=== PATIENT | female | born 1945 | race Caucasian/White ===

== ENCOUNTER 2021-10-02 15:50 | Emergency (ER) | payer OTHER, MEDICARE, SELFPAY ==
--- NOTE | ~2021-10-02 | CT_ITS ---
EXAMINATION: NONCONTRAST HEAD CT NONCONTRAST CERVICAL SPINE CT INDICATION INFORMATION: Right-sided headache COMPARISON: 03/18/2017 TECHNIQUE: Separate noncontrast CT examinations of the head and cervical spine were performed. Coronal and sagittal images were created for each examination at the technologist workstation. This CT examination was performed using dose optimization techniques as appropriate, variously including the following: *Automated exposure control *Adjustment of mA and/or kV according to patient size (this includes techniques or standardized protocols for targeted exams where dose is matched to indication/reason for exam; i.e. extremities or head) *Use of iterative reconstruction technique DLP: 971 mGy-cm FINDINGS: Head: There is no evidence of acute intracranial hemorrhage or territorial infarction. No abnormal mass effect or midline shift is seen. Valerio to white matter differentiation is well preserved. No extra-axial fluid collections are identified. No hydrocephalus. Proportional prominence of the ventricles and sulcal spaces is consistent with mild volume loss. Patchy periventricular and deep white matter hypoattenuation is consistent with mild small vessel ischemic changes. No acute osseous or soft tissue abnormality. The mastoid air cells and visualized portions of the paranasal sinuses are well aerated. Cervical spine: There is anatomic alignment of the vertebral bodies and posterior elements. The atlantoaxial and atlantooccipital articulations are intact. Vertebral body heights are maintained. There is multilevel intervertebral disc space narrowing with endplate osteophyte formation and facet arthropathy. No evidence of acute fracture. No prevertebral soft tissue swelling. Visualized portions of the lung apices are unremarkable. The thyroid gland is unremarkable. CT/CT cervical spine wo con IMPRESSION: 1. No acute intracranial finding. 2. No acute fracture or malalignment of the cervical spine. Mild degenerative change throughout.
[2021-10-02 17:05] VITALS: BP 125/55; PULSE 78; RESP 18; TEMP 37.2; O2SAT 97; BMI 33.3
--- NOTE | 2021-10-02 18:28 | ED_ITS ---
HPI - General Adult General Chief complaint: Head Injury Stated complaint: Head Pain S/P Injury 10/01/21 Time Seen by Provider: 10/02/21 17:18 Source: patient Mode of arrival: ambulatory Limitations: no limitations History of Present Illness HPI narrative: 76 yold female presents to the ED for right sided headache since yesterday after hitting right side of head on door frame of car while getting out of her car. patient denies falling to the ground or any blunt trauma/car to her body. patient denies any vomitting, nausea, or dizziness. Patient presented to the ED for worsening right of headache. Patient denies any visual disturbances. patient denies any chest pain or shortness of breath. patient denies any slurred speech, loss of vision, paralysis of extremities, facial droop, or any other concerning symptoms. Related Data Previous Rx's Medication Instructions Recorded naproxen 500 mg tablet 500 mg PO BID PRN pain 10 days #20 10/02/21 tabs Allergies Allergy/AdvReac Type Severity Reaction Status Date / Time meperidine [From Demerol] AdvReac Mild NAUSEA & Verified 10/02/21 17:04 VOMITING Review of Systems Review of Systems: headache. Right head injury. Yes all other systems are reviewed and are negative [facility] Social History Social History Advance Directives: No Advance Directives Information Provided: No Physical Exam ED Vital Signs: Vital Signs - 24 hr 10/02/21 17:05 Temperature 98.9 F Pulse Rate 78 Respiratory Rate 18 Blood Pressure 125/55 L Pulse Oximetry 97 Oxygen Delivery Method Room Air BMI result Body Mass Index 33.3 Const General: cooperative, healthy appearing, comfortable, no acute distress, well developed, alert, awake and Physically active Orientation/consciousness: patient oriented x3 HENMT Head: Yes normal to inspection, Yes No palpable skull fracture present, Yes normocephalic, Yes atraumatic and No abrasion Head images: 1. Tenderness on palpation. negative for ecchymosis, crepitus, abrasions, or deformities. Eyes General: appearance normal, both eyes and all related structures Neck Neck: Yes normal visual inspection, Yes full ROM, Yes no lymphadenopathy, Yes no meningeal signs, Yes trachea midline, Yes supple, No anterior neck swelling and No tender Chest Chest palpation & inspection: normal inspection of the chest and normal palpation of entire chest wall Resp Effort & Inspection: normal respiratory effort and able to speak in complete sentences Cardio Jugular venous distension: no JVD Heart sounds: S1 normal heart sound present and S2 normal heart sound present GI Inspection: Yes normal to inspection and No abdominal wall ecchymosis Palpation (GI): Soft to palpation, not firm, nontender, no guarding and not ri gid General: No CVA tenderness and Yes no CVA tenderness Back/Spine/Pelvis Back: no CVA tenderness, No CVA tenderness and No back tenderness Skin General skin exam: no rashes or lesions noted and elasticity normal Neuro Other: Negative For neuro deficits General: patient oriented x3, gait normal, no meningeal signs and CN's II-XI intact bilaterally Cranial nerves: Yes CN's II-XII intact bilaterally Extrem General: Yes normal to inspection and Yes full ROM Psych Appearance: grossly normal, well kempt and not disheveled NIH Stroke Scale Internal: Initial- Upon Arrival Level of Consciousness: Alert Level of Consciousness Questions: Answers both questions correctly Level of Consciousness Commands: Performs both tasks correctly Best Gaze: Normal Visual: No visual loss Facial Palsy: Normal Motor Arm (Right): No drift Motor Arm (Left): No drift Motor Leg (Right): No drift Motor Leg (Left): No drift Limb Ataxia: Absent Sensory: Normal Best Language: No aphasia Dysarthia: Normal Extinction and Inattention: No abnormality Score: 0 Course Course Course Narrative: patient is not on any blood thinners, but will send for imaginging due to trauma and headche. Reevaluation(s) Reevaluation #1: Imaging came back normal. patient safe for discharge. NOt suspecting temporal arteritis, meningitis, brain bleed, encephatitis, or any other concerning symptoms. Patient discharge with pain meds Time: 20:16 Discharge Plan Discharge Clinical Impression: Closed head injury Patient Disposition: Home, Self-Care Instructions: Head Injury (ED) Additional Instructions: Return to the ED for any nausea, vomitting, worsening headache, slurred speech, dizziness, paralysis of extremities, fever, chills, loss of visions, change in vision, chest pain, shortness of breath, or any other concerning symptoms. Please follow up with PCP. Prescriptions: New naproxen 500 mg tablet 500 mg PO BID PRN (Reason: pain) 10 Days Qty: 20 0RF Interventions: ED Discharge Assessment Last Done: 10/02/21 20:26 Discharge Date/Time: 10/02/21 20:28 Print Language: Maldivian
[2021-10-02] MEDS: Acetaminophen 325 MG TABLET 975 MG PO (18:47)
--- NOTE | 2021-10-02 18:47 | PC.NURSE ---
returned to unit from CT. Resting on stretcher, medicated with tylenol. Ambulated well to with steady gait
== END 2021-10-02 20:28 | disposition home or self-care (01) ==
PROVIDERS: Emergency Provider Student in an Organized Health Care Education/Training Program
DX: S00.93XA Contusion of unspecified part of head, initial encounter (principal); R51.9 Headache, unspecified; M54.2 Cervicalgia; Y29.XXXA Contact with blunt object, undetermined intent, initial encounter; Y93.9 Activity, unspecified; Y92.9 Unspecified place or not applicable; Y99.9 Unspecified external cause status
CPT/HCPCS: 70450; 72125; 99283; 99284

== ENCOUNTER 2022-05-09 23:14 | Emergency (ER) | payer OTHER, MEDICARE, SELFPAY ==
[2022-05-09 23:28] VITALS: BP 145/75; PULSE 75; RESP 18; TEMP 37; O2SAT 96; BMI 36.1
[2022-05-09 23:36] VITALS: BP 139/48; PULSE 79; RESP 17; TEMP 37.1
--- NOTE | 2022-05-09 23:48 | ED_ITS ---
HPI - Headache General Chief Complaint: Dental/Oral Stated Complaint: jaw/ear pain Time Seen by Provider: 05/09/22 23:43 Source: patient Mode of arrival: ambulatory Limitations: no limitations History of Present Illness HPI Narrative: 76-year-old female several weeks of right-sided jaw pain pain on chewing. She denies any falls or injuries states to have problem is any excessive chewing that she does eat a lot of apples. She states she has limited ability to open her jaw. Patient has gone to walk and a concert on antibiotics. She has not followed with anybody for this pain. MD elicited complaint: other Related Data Previous Rx's Medication Instructions Recorded naproxen 500 mg tablet 500 mg PO BID PRN pain 10 days #20 10/02/21 tabs acetaminophen 325 mg tablet 325 mg PO QID PRN pain #90 tabs 05/09/22 (Tylenol) prednisone 20 mg tablet 60 mg PO DAILY Asthma 5 days #15 05/09/22 tabs Allergies Allergy/AdvReac Type Severity Reaction Status Date / Time meperidine [From Demerol] AdvReac Mild NAUSEA & Verified 05/09/22 23:27 VOMITING Review of Systems Review of Systems: Review of systems: General: Patient denies any fever chills recent illness or falls Musculoskeletal: Denies back pain or body aches or other injuries HEENT: Right-sided jaw pain denies headache, runny nose, ear pain Respiratory: denies shortness of breath, cough Cardiovascular: no chest pain or palpitations : denies dysuria, frequency Abdomen: no nausea vomiting denies abdominal pain Extremities: no swelling, no pain Skin: no diaphoresis Yes all other systems are reviewed and are negative Physical Exam Vital Signs: Vital Signs: Last Vital Signs Temp 98.8 F 05/09/22 23:36 Pulse 79 05/09/22 23:36 Resp 17 05/09/22 23:36 BP 139/48 L 05/09/22 23:36 Pulse Ox 96 05/09/22 23:28 O2 Del Method 05/09/22 23:36 BMI result Body Mass Index 36.1 General: Well-appearing well-nourished in no signs of distress HEENT: Normocephalic atraumatic pain and TMJ area pain with movement of the jaw no pain to palpation of the teeth no signs infection patient does have poor dentition Neck: No signs of JVD, no masses no tenderness or lymphadenopathy Cardiovascular: Regular rate and rhythm Respiratory: Clear to auscultation bilaterally Abdomen: Soft nontender no masses Extremities: Normal pedal pulses no signs of edema Skin: Dry warm no rashes Back: No tenderness full ROM Medical Decision Making Differential Diagnosis Differential Diagnoses: The differential diagnosis associated with the presentation includes Concern for dental infection verses ACS or localized pain he feels this is only localized jaw pain as it is reproducible with patient and with any movement of the jaw she denies any dental pain pain with chewing. Admission/Observation Consideration of admission/observation: Escalation of care including admission/observation considered Discharge Plan Discharge Clinical Impression: TMJ (temporomandibular joint syndrome) Patient Disposition: Home, Self-Care Instructions: Temporomandibular Disorder (ED) Additional Instructions: Your seen today in the emergency department for your jaw. Appears that you have TMJ syndrome this could be related to chewing now IV follow up with her dentist. I did start her short course of prednisone please call follow-up care doctor as needed. Prescriptions: New acetaminophen [Tylenol] 325 mg tablet 325 mg PO QID PRN (Reason: pain) Qty: 90 0RF prednisone 20 mg tablet 60 mg PO DAILY 5 Days Qty: 15 0RF No Action naproxen 500 mg tablet 500 mg PO BID PRN (Reason: pain) 10 Days Qty: 20 0RF Referrals: [facility] [Provider Group] ([phone] Please call to follow up with a dentist.)
[2022-05-09] MEDS: predniSONE 20 MG TABLET 60 MG PO (23:58)
[2022-05-09] MEDS: Acetaminophen 325 MG TABLET 650 MG PO (23:58)
[2022-05-09] MEDS: Ketorolac Tromethamine 30 MG/ML VIAL 15 MG IM (23:59)
== END 2022-05-10 00:11 | disposition home or self-care (01) ==
PROVIDERS: Emergency Provider Student in an Organized Health Care Education/Training Program
DX: M26.601 Right temporomandibular joint disorder, unspecified (principal)
CPT/HCPCS: 96372; 99283; 99284; J1885

== ENCOUNTER 2022-06-09 13:24 | Observation (INO) | payer OTHER, MEDICARE, SELFPAY ==
[2022-06-09] VITALS (8 sets, daily range): BP systolic 104–158; BP diastolic 61–78; PULSE 75–114; RESP 18–22; TEMP 36.6–37; O2SAT 88–98; BMI 33.6; BMI 35.6
--- NOTE | ~2022-06-09 | XR_ITS ---
EXAMINATION: XR CHEST CLINICAL INFORMATION: Cough for 2 weeks COMPARISON: Chest x-ray on 01/27/2018 TECHNIQUE: 2 views of the chest were obtained. FINDINGS: The cardiac silhouette is normal. There is mild diffuse bronchial wall thickening. There are no areas of consolidation. There are no pleural effusions or pneumothoraces. The bones and soft tissues are unremarkable for the patient's age. XR/XR chest 2V IMPRESSION: Bronchial wall thickening may be infectious and/or inflammatory in etiology.
--- NOTE | ~2022-06-09 | CT_ITS ---
EXAMINATION: CT CHEST WITHOUT CONTRAST CLINICAL INFORMATION: Shortness of breath. COMPARISON: Chest x-ray dated 06/09/2022. CT pulmonary angiogram dated 06/16/2006. TECHNIQUE: Multidetector volumetric CT imaging of the chest was obtained noncontrast. Sagittal and coronal reformations were obtained. This CT examination was performed using dose optimization techniques as appropriate, variously including the following: *Automated exposure control *Adjustment of mA and/or kV according to patient size (this includes techniques or standardized protocols for targeted exams where dose is matched to indication/reason for exam; i.e. extremities or head) *Use of iterative reconstruction technique DLP: 299 mGy-cm. FINDINGS: LUNGS: There is mild volume loss with patchy areas of atelectasis seen inferiorly within the right and left upper lobes adjacent to the major fissure, medially in the right middle lobe, and in the lower lobes bilaterally, most prominent in the inferomedial aspects. The findings in the right middle lobe and lingula are associated with minimal traction bronchiolectasis and are similar to older exam from 06/16/2006, suggesting chronic atelectasis. No focal pneumonia is seen. No effusion is noted. The central airways are patent. No focal lung nodule or mass. No evidence of interstitial lung disease or fibrosis. LYMPHOVASCULAR STRUCTURES: Aortic and heart size normal. Mild atherosclerotic calcifications of the aorta No pericardial effusion. No mediastinal, hilar or axillary adenopathy or free fluid collection. CORONARY ARTERY CALCIFICATION: Moderate left anterior descending coronary artery calcifications. THYROID GLAND: Unremarkable to the extent included. UPPER ABDOMEN: There is a 3 cm cyst in the left lobe of the liver, segment 2 (series 4, image 46), larger compared to 0.8 cm previously. Additional smaller low-attenuation masses are seen in segment 3 and segment 5 (series 4, images 53 and 55), not appreciated/included on prior exam and too small to be characterized but likely also small cysts. Included portions of the solid organs in the upper abdomen within normal limits. BONES: Screws are seen in the left humeral head. There is diffuse osteopenia. Moderate vertebral spurring is seen in the mid and lower thoracic spine. CT/CT chest wo IV con IMPRESSION: 1. Multifocal areas of atelectasis seen in the lungs. No focal pneumonia. 2. No adenopathy. 3. Moderate left anterior descending coronary artery calcifications. 4. Osteopenia.
--- NOTE | 2022-06-09 13:49 | ED_ITS ---
HPI - General Adult General Chief complaint: Upper Respiratory Symptoms <DARRION Pandya - Last Filed: 06/09/22 13:50> Stated complaint: coughing <DARRION Pandya - Last Filed: 06/09/22 13:50> Time Seen by Provider: 06/09/22 14:46 <DARRION Pandya - Last Filed: 06/09/22 13:50> Source: patient <Ev Velasquez MD - Last Filed: 06/09/22 16:08> Mode of arrival: ambulatory <Ev Velasquez MD - Last Filed: 06/09/22 16:08> Limitations: no limitations <Ev Velasquez MD - Last Filed: 06/09/22 16:08> History of Present Illness HPI narrative: 76-year-old female who is a secondhand smoker with history of COPD/asthma patient do not use supplemental oxygen at home presented with 3 weeks of upper respiratory symptoms with coughing and shortness of breath associated with chest pain with coughing. Patient finished a course of antibiotic, steroid as an o utpatient with no relief of her symptoms. Stated that her symptoms worsening, patient is satting 92% on air. <Ev Velasquez MD - Last Filed: 06/09/22 16:08> Related Data Home medications: Previous Rx's Medication Instructions Recorded naproxen 500 mg tablet 500 mg PO BID PRN pain 10 days #20 10/02/21 tabs acetaminophen 325 mg tablet 325 mg PO QID PRN pain #90 tabs 05/09/22 (Tylenol) prednisone 20 mg tablet 60 mg PO DAILY Asthma 5 days #15 05/09/22 tabs <DARRION Pandya - Last Filed: 06/09/22 13:50> Allergies/adverse reactions: Allergies Allergy/AdvReac Type Severity Reaction Status Date / Time meperidine [From Demerol] AdvReac Mild NAUSEA & Verified 06/09/22 13:48 VOMITING <DARRION Pandya - Last Filed: 06/09/22 13:50> Review of Systems Review of Systems: All other systems are reviewed and are negative Constitutional: Reports as per HPI and Reports no additional constitutional complaints Eyes: Reports as per HPI and Reports no additional eye complaints Reports system reviewed and no additional complaints, except as documented Cardiovascular: Reports as per HPI and Reports no additional cardiovascular c omplaints Respiratory: Reports as per HPI and Reports no additional respiratory complaints Gastrointestinal: Reports as per HPI and Reports no additional gastrointestinal complaints Genitourinary: Reports no additional female genitourinary complaints Musculoskeletal: Reports no additional musculoskeletal complaints Skin/Breast: Reports system reviewed and no additional complaints, except as docu Psychiatric: Reports no additional psychiatric complaints Endocrine: Reports no additional endocrine complaints Hematologic/Lymphatic: Reports no additional hematologic/lymphatic complaints Allergic/Immunologic: Reports no additional allergic/immunologic complaints Reports system reviewed and no additional complaints, except as documented and Reports Abnormal speech present <Ev Velasquez MD - Last Filed: 06/09/22 16:08> [facility] Past Medical History Medical History: Medical History Asthma COPD (chronic obstructive pulmonary disease) <DARRION Pandya - Last Filed: 06/09/22 13:50> Social History Social History: Social History Alcohol intake: current Alcohol intake frequency: holidays/special occasions only Smoked in Last 30 Days: No Use of substances other than those prescribed or required for medical reasons: No Advance Directives: No Advance Directives Information Provided: Yes <DARRION Pandya - Last Filed: 06/09/22 13:50> Physical Exam ED Vital Signs: Vital Signs - 24 hr 06/09/22 13:48 06/09/22 14:32 06/09/22 14:36 Temperature 98.6 F 98.4 F Pulse Rate 114 H 94 Respiratory Rate 22 H 18 Blood Pressure 158/78 H 104/76 Pulse Oximetry 94 93 93 Oxygen Delivery Method Room Air Room Air Room Air BMI result Body Mass Index 33.6 <DARRION Pandya - Last Filed: 06/09/22 13:50> Vital Signs - 24 hr 06/09/22 13:48 06/09/22 14:32 06/09/22 14:36 Temperature 98.6 F 98.4 F Pulse Rate 114 H 94 Respiratory Rate 22 H 18 Blood Pressure 158/78 H 104/76 Pulse Oximetry 94 93 93 Oxygen Delivery Method Room Air Room Air Room Air BMI result Body Mass Index 33.6 Vital signs have been reviewed as appeared to be correct. Blood pressure normal. Heart rate normal. Respiration rate normal. Temperature normal. Oxygen saturation normal. <Ev Velasquez MD - Last Filed: 06/09/22 16:08> Appearance: Alert. Oriented X3. No acute distress. Head: Normal external exam. Normocephalic. Atraumatic. No Cooper signs noted. No raccoon eyes noted Eyes: PERRLA. EOMI. Conjunctiva and sclera normal. Eyelids normal. ENT: TM's Normal. Pharynx normal. Uvula midline. Moist mucous membranes. No trismus noted. No drooling noted. No muffled voice noted. Neck: Normal inspection. Neck supple. FROM. No adenopathy. Thyroid Normal. No meningeal signs. No neck mass noted. CVS: Normal heart rate and rhythm. Heart sound normal. No murmurs noted. Pulses normal throughout. Respiratory: No respiratory distress. Painless inspiration. Breath sounds normal. Expiratory wheezing, with prolonged expiration. Chest tender to palpation.. No accessory muscle usage noted or decreased air movement noted. Abdomen: Soft and nontender. Bowel sounds normal in all 4 quadrants. No distention noted. No organomegaly noted. No visible injury noted. Back: No CVA tenderness. Full range of motion noted. Skin: Skin warm and dry. Normal skin color. Normal skin turgor. No rashes/lesions/lacerations noted. Extremities: No lower extremity edema. Extremities exhibit normal range of motion. Extremities nontender. Neuro: Oriented X 3. Cranial nerve exam: II-XII are grossly intact No motor deficit. No sensory deficit. Reflexes normal. <Ev Velasquez MD - Last Filed: 06/09/22 16:08> Course Course Course Narrative: RME performed by Autumn Pate PA-C. Patient is a 76 year old assigned female at presenting to the emergency department with a cough. Patient states that she was seen at an urgent care and given prednisone but the cough persists. Patient states that she saw her PCP who informed her it was viral and would resolve but it has been getting worse. Labs, imaging, and swab ordered. Patient placed back in the waiting room pending room availability and results. <DARRION Pandya - Last Filed: 06/09/22 13:50> Reevaluation(s) Reevaluation #1: COPD exacerbation patient tried outpatient antibiotic and steroid course with no relief of her symptoms patient with O2 sat of 92% on room air, chest x- ray is revealing no gita pneumonia pending chest CT, will admit for bronchodilator therapy and antibiotic with IV steroids. <Ev Velasquez MD - Last Filed: 06/09/22 16:08> Time: 16:07 <Ev Velasquez MD - Last Filed: 06/09/22 16:08> Medical Decision Making Differential Diagnosis Differential Diagnoses: The differential diagnosis associated with the presentation includes (Pneumonia, bronchitis, COPD exacerbation, interstitial lung disease.) <Ev Velasquez MD - Last Filed: 06/09/22 16:08> Admission/Observation Consideration of admission/observation: Escalation of care including admission/observation considered <Ev Velsaquez MD - Last Filed: 06/09/22 16:08> Consult Healthcare Provider Management of the patient was discussed with: Hospitalist (Dr. Yoo) <Ev Velasquez MD - Last Filed: 06/09/22 16:08> Lab Data MDM Lab Attestation statement: I reviewed the patient's lab results. <Ev Velasquez MD - Last Filed: 06/09/22 16:08> Result Diagrams: 06/09/22 14:07 06/09/22 14:07 <DARRION Pandya - Last Filed: 06/09/22 13:50> Labs: Lab Results 06/09/22 06/09/22 06/09/22 Range/Units 14:07 14:07 14:07 WBC 9.0 (4.8-10.8) X10*3/uL RBC 4.63 (4.20-5.50) X10*6/uL Hgb 12.9 (12.0-16.0) g/dl Hct 39.9 (37.0-47.0) % MCV 86.2 (80.0-98.0) fL MCH 27.9 (27.0-33.0) pg MCHC 32.3 (31.0-35.0) g/dl RDW 14.1 (11.0-16.0) % Plt Count 293 (160-400) X10*3/uL MPV 8.4 L (9.4-12.3) fL Immature Gran % (Auto) 0.4 (0.0-0.4) % Neut % (Auto) 90.4 H (45-73) % Lymph % (Auto) 8.0 L (20-40) % [place] % (Auto) 1.0 L (2-11) % Eos % (Auto) 0.1 (0-4) % Baso % (Auto) 0.1 (0-2) % Lymph # (Auto) 0.7 L (1.2-4.9) X10*3/uL [place] # (Auto) 0.1 (0.1-1.2) X10*3/uL Eos # (Auto) 0.0 (0.0-0.4) X10*3/uL Baso # (Auto) 0.0 (0.0-0.2) X10*3/uL Abs Immat Gran (auto) 0.04 H (0.00-0.03) X10*3/uL Absolute Neuts (auto) 8.2 (2.0-8.3) x10*3/uL Absolute Nucleated RBC 0.000 (0.0-0.012) X10*3/uL Nucleated RBC % (auto) 0.0 (0.0-0.2) /100WBC Smear Tech's Comments VERIFIED Sodium 138 (135-145) mmol/L Potassium 4.3 (3.3-5.1) mmol/L Chloride 105 (96-108) mmol/L Carbon Dioxide 22 (22-29) mmol/L Anion Gap 15 (12-20) BUN 15 (9-16) mg/dL Creatinine 0.76 (0.5-1.4) mg/dL Estim Creat Clear Calc 66.5 Estimated GFR > 60 Random Glucose 169 H (60-115) mg/dL Calcium 9.0 (8.4-10.2) mg/dL Magnesium 2.1 (1.6-2.6) mg/dL Total Bilirubin 0.3 (0.0-1.0) mg/dL AST 12 (5-31) U/L ALT 14 (0-31) U/L Alkaline Phosphatase 89 (39-117) U/L Troponin I High Sens < 2.7 (<3.5-17.0) ng/L Total Protein 6.8 (6.5-8.0) g/dL Albumin 4.1 (3.5-5.0) g/dL Influenza Type A (PCR) (Negative) Influenza Type B (PCR) (Negative) RSV RNA Qual (PCR) (Negative) SARS-CoV-2 RNA (RT-PCR) (Negative) 06/09/22 Range/Units 14:07 WBC (4.8-10.8) X10*3/uL RBC (4.20-5.50) X10*6/uL Hgb (12.0-16.0) g/dl Hct (37.0-47.0) % MCV (80.0-98.0) fL MCH (27.0-33.0) pg MCHC (31.0-35.0) g/dl RDW (11.0-16.0) % Plt Count (160-400) X10*3/uL MPV (9.4-12.3) fL Immature Gran % (Auto) (0.0-0.4) % Neut % (Auto) (45-73) % Lymph % (Auto) (20-40) % [place] % (Auto) (2-11) % Eos % (Auto) (0-4) % Baso % (Auto) (0-2) % Lymph # (Auto) (1.2-4.9) X10*3/uL [place] # (Auto) (0.1-1.2) X10*3/uL Eos # (Auto) (0.0-0.4) X10*3/uL Baso # (Auto) (0.0-0.2) X10*3/uL Abs Immat Gran (auto) (0.00-0.03) X10*3/uL Absolute Neuts (auto) (2.0-8.3) x10*3/uL Absolute Nucleated RBC (0.0-0.012) X10*3/uL Nucleated RBC % (auto) (0.0-0.2) /100WBC Smear Tech's Comments Sodium (135-145) mmol/L Potassium (3.3-5.1) mmol/L Chloride (96-108) mmol/L Carbon Dioxide (22-29) mmol/L Anion Gap (12-20) BUN (9-16) mg/dL Creatinine (0.5-1.4) mg/dL Estim Creat Clear Calc Estimated GFR Random Glucose (60-115) mg/dL Calcium (8.4-10.2) mg/dL Magnesium (1.6-2.6) mg/dL Total Bilirubin (0.0-1.0) mg/dL AST (5-31) U/L ALT (0-31) U/L Alkaline Phosphatase (39-117) U/L Troponin I High Sens (<3.5-17.0) ng/L Total Protein (6.5-8.0) g/dL Albumin (3.5-5.0) g/dL Influenza Type A (PCR) NEGATIVE (Negative) Influenza Type B (PCR) NEGATIVE (Negative) RSV RNA Qual (PCR) NEGATIVE (Negative) SARS-CoV-2 RNA (RT-PCR) NEGATIVE (Negative) <DARRION Pandya - Last Filed: 06/09/22 13:50> Lab Results 06/09/22 06/09/22 06/09/22 Range/Units 14:07 14:07 14:07 WBC 9.0 (4.8-10.8) X10*3/uL RBC 4.63 (4.20-5.50) X10*6/uL Hgb 12.9 (12.0-16.0) g/dl Hct 39.9 (37.0-47.0) % MCV 86.2 (80.0-98.0) fL MCH 27.9 (27.0-33.0) pg MCHC 32.3 (31.0-35.0) g/dl RDW 14.1 (11.0-16.0) % Plt Count 293 (160-400) X10*3/uL MPV 8.4 L (9.4-12.3) fL Immature Gran % (Auto) 0.4 (0.0-0.4) % Neut % (Auto) 90.4 H (45-73) % Lymph % (Auto) 8.0 L (20-40) % [place] % (Auto) 1.0 L (2-11) % Eos % (Auto) 0.1 (0-4) % Baso % (Auto) 0.1 (0-2) % Lymph # (Auto) 0.7 L (1.2-4.9) X10*3/uL [place] # (Auto) 0.1 (0.1-1.2) X10*3/uL Eos # (Auto) 0.0 (0.0-0.4) X10*3/uL Baso # (Auto) 0.0 (0.0-0.2) X10*3/uL Abs Immat Gran (auto) 0.04 H (0.00-0.03) X10*3/uL Absolute Neuts (auto) 8.2 (2.0-8.3) x10*3/uL Absolute Nucleated RBC 0.000 (0.0-0.012) X10*3/uL Nucleated RBC % (auto) 0.0 (0.0-0.2) /100WBC Smear Tech's Comments VERIFIED Sodium 138 (135-145) mmol/L Potassium 4.3 (3.3-5.1) mmol/L Chloride 105 (96-108) mmol/L Carbon Dioxide 22 (22-29) mmol/L Anion Gap 15 (12-20) BUN 15 (9-16) mg/dL Creatinine 0.76 (0.5-1.4) mg/dL Estim Creat Clear Calc 66.5 Estimated GFR > 60 Random Glucose 169 H (60-115) mg/dL Calcium 9.0 (8.4-10.2) mg/dL Magnesium 2.1 (1.6-2.6) mg/dL Total Bilirubin 0.3 (0.0-1.0) mg/dL AST 12 (5-31) U/L ALT 14 (0-31) U/L Alkaline Phosphatase 89 (39-117) U/L Troponin I High Sens < 2.7 (<3.5-17.0) ng/L Total Protein 6.8 (6.5-8.0) g/dL Albumin 4.1 (3.5-5.0) g/dL Influenza Type A (PCR) (Negative) Influenza Type B (PCR) (Negative) RSV RNA Qual (PCR) (Negative) SARS-CoV-2 RNA (RT-PCR) (Negative) 06/09/22 Range/Units 14:07 WBC (4.8-10.8) X10*3/uL RBC (4.20-5.50) X10*6/uL Hgb (12.0-16.0) g/dl Hct (37.0-47.0) % MCV (80.0-98.0) fL MCH (27.0-33.0) pg MCHC (31.0-35.0) g/dl RDW (11.0-16.0) % Plt Count (160-400) X10*3/uL MPV (9.4-12.3) fL Immature Gran % (Auto) (0.0-0.4) % Neut % (Auto) (45-73) % Lymph % (Auto) (20-40) % [place] % (Auto) (2-11) % Eos % (Auto) (0-4) % Baso % (Auto) (0-2) % Lymph # (Auto) (1.2-4.9) X10*3/uL [place] # (Auto) (0.1-1.2) X10*3/uL Eos # (Auto) (0.0-0.4) X10*3/uL Baso # (Auto) (0.0-0.2) X10*3/uL Abs Immat Gran (auto) (0.00-0.03) X10*3/uL Absolute Neuts (auto) (2.0-8.3) x10*3/uL Absolute Nucleated RBC (0.0-0.012) X10*3/uL Nucleated RBC % (auto) (0.0-0.2) /100WBC Smear Tech's Comments Sodium (135-145) mmol/L Potassium (3.3-5.1) mmol/L Chloride (96-108) mmol/L Carbon Dioxide (22-29) mmol/L Anion Gap (12-20) BUN (9-16) mg/dL Creatinine (0.5-1.4) mg/dL Estim Creat Clear Calc Estimated GFR Random Glucose (60-115) mg/dL Calcium (8.4-10.2) mg/dL Magnesium (1.6-2.6) mg/dL Total Bilirubin (0.0-1.0) mg/dL AST (5-31) U/L ALT (0-31) U/L Alkaline Phosphatase (39-117) U/L Troponin I High Sens (<3.5-17.0) ng/L Total Protein (6.5-8.0) g/dL Albumin (3.5-5.0) g/dL Influenza Type A (PCR) NEGATIVE (Negative) Influenza Type B (PCR) NEGATIVE (Negative) RSV RNA Qual (PCR) NEGATIVE (Negative) SARS-CoV-2 RNA (RT-PCR) NEGATIVE (Negative) <Ev Velasquez MD - Last Filed: 06/09/22 16:08> Independent Interpretation I performed an independent interpretation of an: Plain X-Ray (Bronchial wall thickening.) <Ev Velasquez MD - Last Filed: 06/09/22 16:08> Radiology Impression Discussion of test interpretation with radiology: I have reviewed the radiologist's reading. <Ev Velasquez MD - Last Filed: 06/09/22 16:08> Chronic Conditions Patient?s care impacted by: Other (COPD) <Ev Velasquez MD - Last Filed: 06/09/22 16:08> Discharge Plan Discharge Clinical Impression: Acute exacerbation of chronic obstructive pulmonary disease <DARRION Pandya - Last Filed: 06/09/22 13:50> Patient Disposition: Admitted As Inpatient <DARRION Pandya - Last Filed: 06/09/22 13:50>
--- NOTE | 2022-06-09 13:50 | ECG_ITS ---
Test Reason : SOB Blood Pressure : / mmHG Vent. Rate : 105 BPM Atrial Rate : 105 BPM P-R Int : 124 ms QRS Dur : 084 ms QT Int : 348 ms P-R-T Axes : 032 -43 010 degrees QTc Int : 459 ms Sinus tachycardia Left axis deviation Nonspecific ST and T wave abnormality Abnormal ECG When compared with ECG of 27-JAN-2018 15:43, No significant change was found Referred By: Autumn Pate Electronically Signed By:Anson Shen
[2022-06-09 14:17] LABS: Basophils Percent Auto 0.1 % (0-2); Eosinophils Percent Auto 0.1 % (0-4); Hematocrit 39.9 % (37.0-47.0); Hemoglobin 12.9 g/dl (12.0-16.0); Imm Gran Abs Auto 0.04 X10*3/uL (0.00-0.03); Imm Gran Pct Auto 0.4 % (0.0-0.4); Lymphocytes Absolute Auto 0.7 X10*3/uL (1.2-4.9); MANUAL DIFF FLAG SCAN; Mean Corpuscular HGB Conc 32.3 g/dl (31.0-35.0); Mean Corpuscular Hemoglobin 27.9 pg (27.0-33.0); Mean Corpuscular Volume 86.2 fL (80.0-98.0); Mean Platelet Volume 8.4 fL (9.4-12.3); Monocytes Absolute Auto 0.1 X10*3/uL (0.1-1.2); Neutrophils Absolute Auto 8.2 x10*3/uL (2.0-8.3); Neutrophils Percent Auto 90.4 % (45-73); Platelet Count 293 X10*3/uL (160-400); Red Blood Count 4.63 X10*6/uL (4.20-5.50); Red Cell Distribution Width 14.1 % (11.0-16.0); SCAN SMEAR FLAG 1
[2022-06-09 14:35] LABS: SLIDE REVIEW VERIFIED
[2022-06-09 14:41] LABS: Alanine Aminotransferase 14 U/L (0-31); Albumin Level 4.1 g/dL (3.5-5.0); Alkaline Phosphatase 89 U/L (39-117); Anion Gap 15 (12-20); Aspartate Amino Transferase 12 U/L (5-31); Bilirubin Total 0.3 mg/dL (0.0-1.0); Blood Urea Nitrogen 15 mg/dL (9-16); Carbon Dioxide 22 mmol/L (22-29); Chloride 105 mmol/L (96-108); Creatinine Clr Calc Pharmacy 66.5; Estimated Glomerular Filt Rate > 60; Glucose Random 169 mg/dL (60-115); Magnesium 2.1 mg/dL (1.6-2.6); Potassium 4.3 mmol/L (3.3-5.1); Sodium 138 mmol/L (135-145); Total Protein 6.8 g/dL (6.5-8.0)
--- NOTE | 2022-06-09 14:52 | PC.NURSE ---
pt AOx3, reporting 9/10 pain in ribs and upper back tuan when coughing. Lung sounds exp wheezing bilaterally. NSR on monitor
[2022-06-09 14:54] LABS: Influenza A PCR NEGATIVE (Negative); Influenza B PCR NEGATIVE (Negative); Resp Syncy Virus RNA Qual PCR NEGATIVE (Negative); SARS COV2 PCR INHOUSE NEGATIVE (Negative)
[2022-06-09 14:58] LABS: Troponin-I High Sensitivity < 2.7 ng/L (<3.5-17.0)
[2022-06-09] MEDS: methylPREDNISolone Sod Succ 125 MG/2 ML VIAL IVPUSH (16:05)
[2022-06-09] MEDS: cefTRIAXone sodium 1 GM in 0.9 % Sodium Chloride 50 ML IV (16:05)
--- NOTE | 2022-06-09 16:08 | PC.NURSE ---
patient a&ox, vss, windows migration technician intact NSR, blood culturesx2 drawn, iv abx started per order, call savage within reach, will continue to monitor
[2022-06-09] MEDS: Albuterol/Iprat 2.5/0.5MG 3 ML AMPUL.NEB INHALE ×2 (16:22→20:23)
[2022-06-09] MEDS: Albuterol Sulfate (0.083%) 2.5 MG/3 ML VIAL.NEB 7.5 MG INHALE (16:22)
--- NOTE | 2022-06-09 16:26 | PM.IMHP ---
History of Present Illness Date of Service: 06/09/22 Attending physician on admission: Waqar Yoo Chief Complaint: sob /cough 76-year-old female past medical history of asthma and COPD, GERD, insomnia: Patient said she had URI like symptoms 2 weeks back since then she started to having progressive worsening of cough and shortness of breath, she went to urgent care and was prescribed prednisone and Tessalon but it did not help then subsequently she called his her PCPs office but could not get the are get and patient is having worsening of cough with dark sputum as well as low-grade fever and cough as well as difficulty breathing she sets are pass are not helping at home so decided to come to the hospital. She also tried Robitussin with some relief. At presentation patient is having aggressive cough, talking in short sentences, she also has lower rib cage pain whenever she coughs. Patient says that she does not get frequent COPD exacerbations(last time she was in the hospital is few years back), she never need BiPAP or intubation. 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 Unclear if she got any URI from there.). she had PFIZER vaccine (covid) x4. Lab imaging reviewed: CBC seems fine, BMP seems also fine, lactic acid pending. Chest x-ray: Bronchial wall thickening may be infectious and/or inflammatory in etiology. ct chest pending -ordered by ed. ekg -sinus tachycardia ,no st changes. Review of Systems Review of Systems: please see above. [facility] Medical History (Updated 06/09/22 @ 16:35 by Waqar Yoo MD) Asthma COPD (chronic obstructive pulmonary disease) GERD (gastroesophageal reflux disease) Insomnia Pertinent family history: Father has history of lung cancer skin cancer, mother had history of breast cancer, her daughter has heart disease. Social History Alcohol intake: current Alcohol intake frequency: holidays/special occasions only Smoked in Last 30 Days: No Use of substances other than those prescribed or required for medical reasons: No Advance Directives: No Advance Directives Information Provided: Yes Meds Allergies Allergy/AdvReac Type Severity Reaction Status Date / Time meperidine [From Demerol] AdvReac Mild NAUSEA & Verified 06/09/22 13:48 VOMITING Home Medications Medication Instructions Recorded Confirmed Last Taken Type albuterol sulfate 90 mcg/actuation 2 puff inhalation Q6H PRN 06/09/22 06/09/22 06/09/22 09:00 History aerosol inhaler (Ventolin HFA) Shortness Of Breath Or Wheezing benzonatate 100 mg capsule 100 mg PO TID PRN Cough 06/09/22 06/09/22 Unknown History fluticasone 500 mcg-salmeterol 50 1 ea inhalation BID 06/09/22 06/09/22 06/09/22 09:00 History mcg/dose blistr powdr for inhalation (Wixela Inhub) multivitamin 1 tab PO DAILY 06/09/22 06/09/22 06/09/22 09:00 History pantoprazole 20 mg tablet,delayed 20 mg PO DAILY@0630 06/09/22 06/09/22 06/09/22 07:00 History release trazodone 100 mg tablet 100 mg PO BEDTIME 06/09/22 06/09/22 06/08/22 History Physical Exam Vital Signs and Narrative: Vital Signs: Last Vital Signs Temp 98.4 F 06/09/22 14:32 Pulse 75 06/09/22 16:23 Resp 18 06/09/22 16:23 BP 104/76 06/09/22 14:32 Pulse Ox 93 06/09/22 14:36 O2 Del Method Room Air 06/09/22 14:36 BMI result Body Mass Index 33.6 Physical exam: Appearance: Alert.? Oriented X3.?cough /speaks in short sentences Eyes: Pupils equal, round and reactive to light.? Sclera nonicteric.? ENT: Pharynx normal.? Moist mucous membranes. cvs: rrr, [id number] . res: air enry diminshed ,few rhonchii b/l , no rales abd: no rebound or guarding ,nt, bs present. ext pulses present , no cyanosis ,no edema . neuro: axo3 , nonfocal. Results Labs 06/09/22 14:07 06/09/22 14:07 Labs: Laboratory Results - last 24 hr 06/09/22 06/09/22 06/09/22 14:07 14:07 14:07 MCV 86.2 MCH 27.9 MCHC 32.3 RDW 14.1 Plt Count 293 MPV 8.4 L Immature Gran % (Auto) 0.4 Neut % (Auto) 90.4 H Lymph % (Auto) 8.0 L [place] % (Auto) 1.0 L Eos % (Auto) 0.1 Baso % (Auto) 0.1 Lymph # (Auto) 0.7 L [place] # (Auto) 0.1 Eos # (Auto) 0.0 Baso # (Auto) 0.0 Abs Immat Gran (auto) 0.04 H Absolute Neuts (auto) 8.2 Absolute Nucleated RBC 0.000 Nucleated RBC % (auto) 0.0 Smear Tech's Comments VERIFIED Anion Gap 15 Estim Creat Clear Calc 66.5 Estimated GFR > 60 Random Glucose 169 H Calcium 9.0 Magnesium 2.1 Total Bilirubin 0.3 AST 12 ALT 14 Alkaline Phosphatase 89 Troponin I High Sens < 2.7 Total Protein 6.8 Albumin 4.1 Influenza Type A (PCR) Influenza Type B (PCR) RSV RNA Qual (PCR) SARS-CoV-2 RNA (RT-PCR) 06/09/22 14:07 MCV MCH MCHC RDW Plt Count MPV Immature Gran % (Auto) Neut % (Auto) Lymph % (Auto) [place] % (Auto) Eos % (Auto) Baso % (Auto) Lymph # (Auto) [place] # (Auto) Eos # (Auto) Baso # (Auto) Abs Immat Gran (auto) Absolute Neuts (auto) Absolute Nucleated RBC Nucleated RBC % (auto) Smear Tech's Comments Anion Gap Estim Creat Clear Calc Estimated GFR Random Glucose Calcium Magnesium Total Bilirubin AST ALT Alkaline Phosphatase Troponin I High Sens Total Protein Albumin Influenza Type A (PCR) NEGATIVE Influenza Type B (PCR) NEGATIVE RSV RNA Qual (PCR) NEGATIVE SARS-CoV-2 RNA (RT-PCR) NEGATIVE Imaging Radiologist's Impressions: Impressions Chest X-Ray 06/09/22 14:24 IMPRESSION: Bronchial wall thickening may be infectious and/or inflammatory in etiology. Assessment and Plan (1) Acute exacerbation of chronic obstructive pulmonary disease: Status: Acute (2) Asthma exacerbation: Status: Acute (3) Acute bronchitis: Status: Acute Plan 76-year-old female with history of asthma, COPD GERD and insomnia came to the hospital because of progressive worsening of cough with darkish yellow brown sputum, low-grade fever, shortness of breath. 1. Acute asthma(mild intermittent asthma)/COPD exacerbation, probably has component of acute bacterial bronchitis: Tachypnea probably related to COPD exacerbation, tachycardia probably related to nebs. mild elevated lactic acid due to nebs. low grade tempat home 100.2*f as per patient. Failed outpatient therapy with prednisone, Tessalon, Robitussin and her COPD medications inhalers at home. Patient received albuterol, ceftriaxone and prednisone in ED with little response RES panel Continue nebs, steroids, antibiotics, loratadine, cough meds hycodan 2. hx of gerd: continue ppi 3. Insomnia : continue tazodone . 4. Morbid obesity: Encouraged to lose weight. dvt prophylax: s/c heparin Patient admitted for observation or asthma/COPD exacerbation as above needs nebs, steroids, antibiotics and, monitoring of respiratory status ,she did not respond well to outpatient therapy. Patient full code, patient management discussed with patient in detail and she understand and in agreement with the above plan, time spent 70 minute. Time Spent With Patient Time: Total time managing care of this patient today ____ minutes. Quality Stroke Does the patient have a stroke diagnosis?: No VTE Prior VTE?: No VTE Risk Level:: Medical - moderate - high VTE Device Contraindication: N/A - Device Ordered VTE Drug Contraindication: N/A - Med Ordered
--- NOTE | 2022-06-09 16:38 | PHA.MEDREC ---
Pharmacy Consult ? Medication Reconciliation Pharmacy has completed the medication reconciliation. Spoke to patient to confirm meds.
[2022-06-09 16:46] LABS: Lactic Acid 2.2 mmol/L (0.5-2.0)
[2022-06-09 18:39] LABS: Appearance Urine Clear; Color Urine Yellow; Glucose Urine UA Negative (Negative); Leukocyte Esterase Urine Small (1+) (Negative); Nitrite Urine Negative (Negative); UMIC TRIGGER UACC YES; Urine Blood Negative (Negative); Urine Ketones Negative (Negative); Urine Protein Negative (Neg-Trace)
[2022-06-09 18:53] LABS: Bacteria Urine None Seen (None Seen); Hyaline Casts Urine 0-2 /LPF (0-2); RBC Urine 0-2 /HPF (0-2); Squamous Epithelial Cell Urine 0-2 /HPF (0-2); UACC Culture Trigger YES; WBC Urine 0-5 /HPF (0-5)
--- NOTE | 2022-06-09 19:12 | PC.NURSE ---
this nurse called to give report and the floor stated they would call us back
--- NOTE | 2022-06-09 19:18 | PC.NURSE ---
patient a&ox3, panel monitor nsr 90s, vitals obtained, pt noted to be 88 on room air, applied 3 L NC patient gradually going up- at 91% at the time of this note, pt denies sob, lungs sounds clear throughout, denies pain/discomfort at this time, call savage within reach, will continue to monitor.
[2022-06-09] MEDS: Heparin Sodium,Porcine 5,000 UNIT/ML VIAL 5000 UNIT SUBCUT (19:23)
[2022-06-09] MEDS: methylPREDNISolone Sod Succ 40 MG/ML VIAL IVPUSH (20:40)
[2022-06-09] MEDS: guaiFEN/Codeine SF 200/20/10ML 10 ML LIQUID PO (20:40)
[2022-06-09] MEDS: traZODone HCL 100 MG TABLET PO (20:40)
[2022-06-10] VITALS (9 sets, daily range): BP systolic 116–130; BP diastolic 55–69; PULSE 62–89; RESP 16–20; TEMP 36.4–36.7; O2SAT 90–97
[2022-06-10] MEDS: 0.9 % Sodium Chloride Flush 3 ML SYRINGE IVFLUSH ×4 (00:16→21:58)
[2022-06-10] MEDS: Albuterol/Iprat 2.5/0.5MG 3 ML AMPUL.NEB INHALE ×4 (00:35→20:02)
[2022-06-10] MEDS: guaiFEN/Codeine SF 200/20/10ML 10 ML LIQUID PO ×5 (02:51→21:58)
[2022-06-10] MEDS: Heparin Sodium,Porcine 5,000 UNIT/ML VIAL 5000 UNIT SUBCUT ×3 (02:51→17:14)
[2022-06-10] MEDS: Omeprazole 20 MG CAPSULE.DR PO (06:00)
[2022-06-10] MEDS: Fluticasone/Vilanterol 200/25 BLST.W.DEV 1 PUFF INHALE (08:06)
[2022-06-10] MEDS: Multivitamin TABLET 1 TAB PO (08:14)
[2022-06-10] MEDS: Loratadine 10 MG TABLET PO (08:14)
[2022-06-10] MEDS: methylPREDNISolone Sod Succ 40 MG/ML VIAL IVPUSH ×2 (08:14→21:58)
[2022-06-10 08:45] LABS: Adenovirus PCR Not Detected (Not Detect.); Bordetella parapertussis PCR Not Detected (Not Detect.); Bordetella pertussis PCR Not Detected (Not Detect.); Chlamydia pneumoniae PCR Not Detected (Not Detect.); Coronavirus 229E PCR Not Detected (Not Detect.); Coronavirus HKU1 PCR Not Detected (Not Detect.); Coronavirus NL63 PCR Not Detected (Not Detect.); Coronavirus OC43 PCR Not Detected (Not Detect.); Human metapneumovirus PCR Detected (Not Detect.); Influenza A PCR Not Detected (Not Detect.); Influenza B PCR Not Detected (Not Detect.); Mycoplasma pneumoniae PCR Not Detected (Not Detect.); Parainfluenza 1 PCR Not Detected (Not Detect.); Parainfluenza 2 PCR Not Detected (Not Detect.); Parainfluenza 3 PCR Not Detected (Not Detect.); Rhino/Enterovirus PCR Not Detected (Not Detect.); SARS-CoV-2 PCR Not Detected (Not Detect.)
[2022-06-10 08:46] LABS: Parainfluenza 4 PCR Not Detected (Not Detect.); RSV PCR Not Detected (Not Detect.)
--- NOTE | 2022-06-10 09:06 | MHC.CM.PN ---
PT REPORTS SHE LIVES ALONE AND IS INDEPENDENT WITH CARE SHE HAS NO DME AND NO SERVICES PT REPORTS SHE IS COVID VAX AND BOOSTED SHE IS CONSIDERING COMPLETING A HCP, SHE IS AWARE CM CAN ASSIST PCP: [facility] NOTICE DELIVERED CURRENT DC PLAN IS HOME NO SERVICES PT WILL DRIVE HERSELF HOME
[2022-06-10] MEDS: polyethylene glycoL 3350 17 GM POWD.PACK PO (10:04)
--- NOTE | 2022-06-10 10:22 | HO.PM.IMPN ---
Subjective Subjective Date of Service: 06/10/22 Interval History: sob /cough Review of Systems Patient is still having shortness of breath with minimal exertion, also having productive aggressive cough, she does not feel much improvement since yesterday. No fever or chills Physical Exam Vital Signs: Vital Signs: Last Vital Signs Temp 98.1 F 06/10/22 07:55 Pulse 85 06/10/22 08:11 Resp 18 06/10/22 08:11 BP 130/69 06/10/22 07:55 Pulse Ox 92 06/10/22 07:55 O2 Del Method Room Air 06/10/22 07:55 O2 Flow Rate 3 06/09/22 16:49 BMI result Body Mass Index 35.6 Appearance: Alert.? Oriented X3.?cough /speaks in short sentences cvs: rrr, [id number] . res: air enry diminshed ,few rhonchii b/l , no rales abd: no rebound or guarding ,nt, bs present. ext pulses present , no cyanosis ,no edema . neuro: axo3 , nonfocal. Objective Data Active Medications Albuterol/Ipratropium (Albuterol/Iprat 2.5/0.5mg 3 Ml Ampul.Neb) 3 ml INHALE RQ4H [facility] Last Admin: 06/10/22 08:07 Dose: Not Given Documented By: BENOIT Non-Admin Reason: Patient Refused Albuterol/Ipratropium (Albuterol/Iprat 2.5/0.5mg 3 Ml Ampul.Neb) 3 ml INHALE Q3H PRN PRN Reason: Shortness of Breath Docusate Sodium (Docusate Sodium 100 Mg Capsule) 100 mg PO BEDTIME [facility] Fluticasone/Vilanterol (Fluticasone/Vilanterol 200/25 Blst.W.Dev) 1 puff INHALE RDAILY [facility] Last Admin: 06/10/22 08:06 Dose: 1 puff Documented By: BENOIT Guaifenesin/Codeine Phosphate (Guaifen/Codeine Sf 200/20/10ml 10 Ml Liquid) 10 ml PO Q4H [facility] Last Admin: 06/10/22 09:13 Dose: 10 ml Documented By: MELITA Heparin Sodium (Porcine) (Heparin Sodium,Porcine 5,000 Unit/Ml Vial) 5,000 unit SUBCUT Q8H [facility] Last Admin: 06/10/22 09:14 Dose: 5,000 unit Documented By: MELITA Ceftriaxone Sodium 1 gm/ (Sodium Chloride) 50 mls @ 100 mls/hr IV Q24H [facility] Loratadine (Loratadine 10 Mg Tablet) 10 mg PO DAILY [facility] Last Admin: 06/10/22 08:14 Dose: 10 mg Documented By: MELITA Methylprednisolone Sodium Succinate (Methylprednisolone Sod Succ 40 Mg/Ml Vial) 40 mg IVPUSH BID [facility] Last Admin: 06/10/22 08:14 Dose: 40 mg Documented By: MELITA Multivitamins/Vitamin C (Multivitamin Tablet) 1 tab PO DAILY [facility] Last Admin: 06/10/22 08:14 Dose: 1 tab Documented By: MELITA Omeprazole (Omeprazole 20 Mg Capsule.Dr) 20 mg PO DAILY@0630 [facility] Last Admin: 06/10/22 06:00 Dose: 20 mg Documented By: SUNNY Pharmacy Consult (Consult Rx Perform Med Rec) 1 each MISCELLANE ONCE PRN PRN Reason: Consult order Polyethylene Glycol (Polyethylene Glycol 3350 17 Gm Powd.Pack) 17 gm PO DAILY [facility] Last Admin: 06/10/22 10:04 Dose: 17 gm Documented By: MELITA Sodium Chloride (0.9 % Sodium Chloride Flush 3 Ml Syringe) 3 ml IVFLUSH QSHIFT [facility] Last Admin: 06/10/22 08:15 Dose: 3 ml Documented By: MELITA Trazodone HCl (Trazodone Hcl 100 Mg Tablet) 100 mg PO BEDTIME [facility] Last Admin: 06/09/22 20:40 Dose: 100 mg Documented By: JASPERT Labs 06/09/22 14:07 06/09/22 14:07 Labs: Laboratory Results - last 24 hr 06/09/22 06/09/22 06/09/22 14:07 14:07 14:07 MCV 86.2 MCH 27.9 MCHC 32.3 RDW 14.1 Plt Count 293 MPV 8.4 L Immature Gran % (Auto) 0.4 Neut % (Auto) 90.4 H Lymph % (Auto) 8.0 L Bradley % (Auto) 1.0 L Eos % (Auto) 0.1 Baso % (Auto) 0.1 Lymph # (Auto) 0.7 L Bradley # (Auto) 0.1 Eos # (Auto) 0.0 Baso # (Auto) 0.0 Abs Immat Gran (auto) 0.04 H Absolute Neuts (auto) 8.2 Absolute Nucleated RBC 0.000 Nucleated RBC % (auto) 0.0 Smear Tech's Comments VERIFIED Anion Gap 15 Estim Creat Clear Calc 66.5 Estimated GFR > 60 Random Glucose 169 H Lactic Acid Calcium 9.0 Magnesium 2.1 Total Bilirubin 0.3 AST 12 ALT 14 Alkaline Phosphatase 89 Troponin I High Sens < 2.7 Total Protein 6.8 Albumin 4.1 Urine Color Urine Appearance Urine pH Ur Specific [place] Urine Protein Urine Glucose (UA) Urine Ketones Urine Blood Urine Nitrite Ur Leukocyte Esterase Urine RBC Urine WBC Ur Squamous Epith Cells Urine Bacteria Hyaline Casts Respiratory Panel Coelho Adenovirus (Rapid PCR) B.pert (TEM-PCR) B.parapertussis DNA PCR C. pneumoniae DNA (PCR) Coronavirus OC43 (PCR) Coronavirus HKU1 (PCR) Coronavirus 229E (PCR) Coronavirus NL63 (PCR) Human Metapneumovir PCR Influenza A (RT-PCR) Influenza Type A (PCR) Influenza B (RT-PCR) Influenza Type B (PCR) M. pneumoniae (PCR) Parainfluenza 1 (PCR) Parainfluenza 2 (PCR) Parainfluenza 3 (PCR) Parainfluenza 4 (PCR) RSV (PCR) RSV RNA Qual (PCR) Entero/Rhino (PCR) SARS-CoV-2 RNA (RT-PCR) 06/09/22 06/09/22 06/09/22 14:07 15:45 18:26 MCV MCH MCHC RDW Plt Count MPV Immature Gran % (Auto) Neut % (Auto) Lymph % (Auto) Bradley % (Auto) Eos % (Auto) Baso % (Auto) Lymph # (Auto) Bradley # (Auto) Eos # (Auto) Baso # (Auto) Abs Immat Gran (auto) Absolute Neuts (auto) Absolute Nucleated RBC Nucleated RBC % (auto) Smear Tech's Comments Anion Gap Estim Creat Clear Calc Estimated GFR Random Glucose Lactic Acid 2.2 H* Calcium Magnesium Total Bilirubin AST ALT Alkaline Phosphatase Troponin I High Sens Total Protein Albumin Urine Color Urine Appearance Urine pH Ur Specific [place] Urine Protein Urine Glucose (UA) Urine Ketones Urine Blood Urine Nitrite Ur Leukocyte Esterase Urine RBC Urine WBC Ur Squamous Epith Cells Urine Bacteria Hyaline Casts Respiratory Panel Co[place]ho See Note Adenovirus (Rapid PCR) Not Detected B.pert (TEM-PCR) Not Detected B.parapertussis DNA PCR Not Detected C. pneumoniae DNA (PCR) Not Detected Coronavirus OC43 (PCR) Not Detected Coronavirus HKU1 (PCR) Not Detected Coronavirus 229E (PCR) Not Detected Coronavirus NL63 (PCR) Not Detected Human Metapneumovir PCR Detected A Influenza A (RT-PCR) Not Detected Influenza Type A (PCR) NEGATIVE Influenza B (RT-PCR) Not Detected Influenza Type B (PCR) NEGATIVE M. pneumoniae (PCR) Not Detected Parainfluenza 1 (PCR) Not Detected Parainfluenza 2 (PCR) Not Detected Parainfluenza 3 (PCR) Not Detected Parainfluenza 4 (PCR) Not Detected RSV (PCR) Not Detected RSV RNA Qual (PCR) NEGATIVE Entero/Rhino (PCR) Not Detected SARS-CoV-2 RNA (RT-PCR) NEGATIVE Not Detected 06/09/22 18:26 MCV MCH MCHC RDW Plt Count MPV Immature Gran % (Auto) Neut % (Auto) Lymph % (Auto) Bradley % (Auto) Eos % (Auto) Baso % (Auto) Lymph # (Auto) Bradley # (Auto) Eos # (Auto) Baso # (Auto) Abs Immat Gran (auto) Absolute Neuts (auto) Absolute Nucleated RBC Nucleated RBC % (auto) Smear Tech's Comments Anion Gap Estim Creat Clear Calc Estimated GFR Random Glucose Lactic Acid Calcium Magnesium Total Bilirubin AST ALT Alkaline Phosphatase Troponin I High Sens Total Protein Albumin Urine Color Yellow Urine Appearance Clear Urine pH 8.0 Ur Specific [place] 1.010 Urine Protein Negative Urine Glucose (UA) Negative Urine Ketones Negative Urine Blood Negative Urine Nitrite Negative Ur Leukocyte Esterase Small (1+) H Urine RBC 0-2 Urine WBC 0-5 Ur Squamous Epith Cells 0-2 Urine Bacteria None Seen Hyaline Casts 0-2 Respiratory Panel [place] Adenovirus (Rapid PCR) B.pert (TEM-PCR) B.parapertussis DNA PCR C. pneumoniae DNA (PCR) Coronavirus OC43 (PCR) Coronavirus HKU1 (PCR) Coronavirus 229E (PCR) Coronavirus NL63 (PCR) Human Metapneumovir PCR Influenza A (RT-PCR) Influenza Type A (PCR) Influenza B (RT-PCR) Influenza Type B (PCR) M. pneumoniae (PCR) Parainfluenza 1 (PCR) Parainfluenza 2 (PCR) Parainfluenza 3 (PCR) Parainfluenza 4 (PCR) RSV (PCR) RSV RNA Qual (PCR) Entero/Rhino (PCR) SARS-CoV-2 RNA (RT-PCR) Assessment and Plan (1) Acute bronchitis: Status: Acute (2) Asthma exacerbation: Status: Acute (3) Acute exacerbation of chronic obstructive pulmonary disease: Status: Acute Plan 76-year-old female with history of asthma, COPD GERD and insomnia came to the hospital because of progressive worsening of cough with darkish yellow brown sputum, low-grade fever, shortness of breath. 1. Acute asthma(mild intermittent asthma)/COPD exacerbation, probably has component of acute bacterial bronchitis with Humman metapneumovirus URI. Tachypnea probably related to COPD exacerbation, tachycardia probably related to nebs. mild elevated lactic acid due to nebs,low grade tempat home 100.2*f as per patient. RES panel-Humman metapneumovirus URI Failed outpatient therapy with prednisone, Tessalon, Robitussin and her COPD medications inhalers at home. Patient received albuterol, ceftriaxone and prednisone in ED with little response ct chest -shows atelactsis , no pneumonia very little response to therapy yet-Continue nebs, steroids, antibiotics, loratadine, cough meds hycodan adjusted , inaddition added incentive sprio,chest physio. oob . 2. hx of gerd:continue ppi. 3. Insomnia : continue tazodone . 4. Morbid obesity:? Encouraged to lose weight. dvt prophylax: s/c heparin inpatient need : asthma/COPD exacerbation as above needs nebs, steroids, antibiotics , monitoring of respiratory status ,she did not respond well to outpatient therapy. Time Spent With Patient Time: Total time managing care of this patient today ____ minutes. Quality Stroke Does the patient have a stroke diagnosis?: No VTE Prior VTE?: No VTE Risk Level:: Medical - moderate - high VTE Device Contraindication: N/A - Device Ordered VTE Drug Contraindication: N/A - Med Ordered
[2022-06-10] MEDS: cefTRIAXone sodium 1 GM in 0.9 % Sodium Chloride 50 ML IV (15:27)
[2022-06-10] MEDS: traZODone HCL 100 MG TABLET PO (21:58)
[2022-06-10] MEDS: Docusate Sodium 100 MG CAPSULE PO (21:58)
[2022-06-11] MEDS: guaiFEN/Codeine SF 200/20/10ML 10 ML LIQUID PO ×3 (01:17→09:00)
[2022-06-11] MEDS: Heparin Sodium,Porcine 5,000 UNIT/ML VIAL 5000 UNIT SUBCUT ×2 (01:17→09:01)
[2022-06-11 03:37] VITALS: BP 125/60; PULSE 64; RESP 20; TEMP 36.5; O2SAT 95
[2022-06-11] MEDS: Omeprazole 20 MG CAPSULE.DR PO (05:59)
[2022-06-11] MEDS: Albuterol/Iprat 2.5/0.5MG 3 ML AMPUL.NEB INHALE (07:41)
[2022-06-11] MEDS: Fluticasone/Vilanterol 200/25 BLST.W.DEV 1 PUFF INHALE (07:41)
[2022-06-11 07:44] VITALS: PULSE 65; RESP 17; RESP 18; O2SAT 90
[2022-06-11 07:55] VITALS: BP 119/73; PULSE 78; RESP 19; TEMP 36.4; O2SAT 92
[2022-06-11] MEDS: methylPREDNISolone Sod Succ 40 MG/ML VIAL IVPUSH (09:00)
[2022-06-11] MEDS: 0.9 % Sodium Chloride Flush 3 ML SYRINGE IVFLUSH (09:01)
[2022-06-11] MEDS: polyethylene glycoL 3350 17 GM POWD.PACK PO (09:01)
[2022-06-11] MEDS: Loratadine 10 MG TABLET PO (09:01)
[2022-06-11] MEDS: Multivitamin TABLET 1 TAB PO (09:01)
--- NOTE | 2022-06-11 09:50 | P.DS_ITS ---
DS: Providers Provider Date of Service: 06/11/22 Date of admission: 06/09/22 16:44 Date of discharge: 06/11/22 Primary care physician: Kelton Nazario MD DS: Diagnosis Discharge Diagnosis (1) Acute bronchitis: Status: Acute (2) Asthma exacerbation: Status: Acute (3) Acute exacerbation of chronic obstructive pulmonary disease: Status: Acute DS: Summary Hospital Course Hospital Course: 76-year-old female past medical history of asthma and COPD, GERD, insomnia:? Patient said she had URI like symptoms 2 weeks back since then she started to having progressive worsening of cough and shortness of breath, she went to urgent care and was prescribed prednisone and Tessalon but it did not help then subsequently she called his her PCPs office but could not get the are get and patient is having worsening of cough with dark sputum as well as low-grade fever and cough as well as difficulty breathing she sets are pass are not helping at home so decided to come to the hospital.? She also tried Robitussin with some relief. At presentation patient is having aggressive cough, talking in short sentences, she also has lower rib cage pain whenever she coughs. Patient says that she does not get frequent COPD exacerbations(last time she was in the hospital is few years back), she never need BiPAP or intubation.? 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 Unclear if she got any URI from there.). she had PFIZER vaccine (covid) x4. Lab imaging reviewed: CBC seems fine, BMP seems also fine, lactic acid pending. Chest x-ray:? Bronchial wall thickening may be infectious and/or inflammatory in etiology. ct chest pending -ordered by ed. ekg -sinus tachycardia ,no st changes. Hospital course: Patient admitted for acute asthma exacerbation(mild intermittent asthma) in the setting of viral URI, also have possible acute bronchitis: Started on nebs, steroids also given the benefit of diet started on antibiotics also, patient seems to be improved with supportive care, no leukocytosis, no fever. Blood culture also negative at for 24 hours. Patient seems better so going home with p.o.. Further management out patiently with PCP. Plan: complete antibiotics , prednisone, cough medication. continue incentive spriometry follow up with pcp. The assessment and plan coordination time spent 50 minute. Time Spent with Patient Time attestation: Total time managing care of this patient today ____ minutes. Discharge coordination time: Greater than 30 minutes Quality: Safe Use of Opioids Does Pt have an Active Cancer Diagnosis on the Problem List?: No Quality: Stroke Does the patient have a stroke diagnosis?: No Physical Exam Vital Signs: Vital Signs: Last Vital Signs Temp 97.6 F 06/11/22 07:55 Pulse 78 06/11/22 07:55 Resp 19 06/11/22 07:55 BP 119/73 06/11/22 07:55 Pulse Ox 92 06/11/22 07:55 O2 Del Method Room Air 06/11/22 07:55 O2 Flow Rate 3 06/09/22 16:49 BMI result Body Mass Index 35.6 Appearance: Alert.? Oriented X3. cvs: rrr, [id number] . res: air enry diminshed ,few rhonchii b/l , no rales abd: no rebound or guarding ,nt, bs present. ext pulses present , no cyanosis ,no edema . neuro: axo3 , nonfocal. DS: Data Data Completed and Pending Labs on day of discharge: Preliminary micro results at discharge 06/09/22 15:48 Blood Culture - Preliminary Blood - Venous No growth after 24 hours. 06/09/22 15:46 Blood Culture - Preliminary Blood - Venous No growth after 24 hours. 06/09/22 Unknown Urine Culture - Preliminary Urine clean catch - Urine jean top No growth to date. Imaging Chest x-ray: Radiologist's impression: ITS Impressions Chest X-Ray 06/09/22 14:24 IMPRESSION: Bronchial wall thickening may be infectious and/or inflammatory in etiology. Chest CT 06/09/22 18:41 IMPRESSION: 1. Multifocal areas of atelectasis seen in the lungs. No focal pneumonia. 2. No adenopathy. 3. Moderate left anterior descending coronary artery calcifications. 4. Osteopenia. Discharge Plan Discharge Anticipated Discharge Date/Time: 06/11/22 09:33 Patient Disposition: Home, Self-Care Discharge Diagnosis: intermittent asthma excerebation,viral uri(human metapneumovirus) uri. Referrals: Kelton Nazario MD [Primary Care Provider] - 1 Week Discharge Medications: New loratadine 10 mg Tablet 10 mg PO DAILY Qty: 30 0RF prednisone 20 mg tablet 40 mg PO DAILY Qty: 8 0RF cefuroxime axetil 500 mg tablet 500 mg PO BID Qty: 12 0RF Robitussin Cough and Cold CF 2.5-5-50 mg/5 mL liquid 15 ml PO Q4H PRN (Reason: cough) Qty: 118 0RF Continued multivitamin Tablet 1 tab PO DAILY pantoprazole 20 mg tablet,delayed release (DR/EC) 20 mg PO DAILY@0630 trazodone 100 mg tablet 100 mg PO BEDTIME benzonatate 100 mg capsule 100 mg PO TID PRN (Reason: Cough) fluticasone propion-salmeterol [Wixela Inhub] 500-50 mcg/dose blister with device 1 ea inhalation BID albuterol sulfate [Ventolin HFA] 90 mcg/actuation HFA aerosol inhaler 2 puff inhalation Q6H PRN (Reason: Shortness Of Breath Or Wheezing) Discharge Orders: Discharge Order (Routine); Ordered 06/11/22 Ordered By: Waqar Yoo Diet: Advance to usual diet Activity on Discharge: As tolerated Stand Alone Forms: Patient Portal Discharge page Care Plan Goals: Patient admitted for acute asthma exacerbation(mild intermittent asthma) in the setting of viral URI, also have possible acute bronchitis.: Started on nebs, st eroids also given the benefit of diet started on antibiotics also, patient seems to be improved with supportive care, no leukocytosis, no fever. Blood culture also negative at for 24 hours. Patient seems better so going home with p.o. prednisone, antibiotics, cough medication. Further management out patiently with PCP. Health Concerns: As above. Plan of Treatment: As above. Assessment: As above. Patient Instructions: Asthma (DC), Acute Bronchitis (ED)
== END 2022-06-11 10:41 | disposition home or self-care (01) ==
LOC: HO.ED 15:56 → HO.EDOVER 17:25 → HO.S3 17:38
PROVIDERS: Physician Assistant Medical; Admitting Provider Internal Medicine; Emergency Provider Emergency Medicine; PCP Internal Medicine; Visit Provider Internal Medicine
DX: J06.9 Acute upper respiratory infection, unspecified (principal); B97.81 Human metapneumovirus as the cause of diseases classified elsewhere; J44.1 Chronic obstructive pulmonary disease with (acute) exacerbation; R06.02 Shortness of breath; R05.9 Cough, unspecified; K21.9 Gastro-esophageal reflux disease without esophagitis; R07.89 Other chest pain; Z20.822 Contact with and (suspected) exposure to COVID-19
CPT/HCPCS: 0241U; 36415; 71046; 71250; 80053; 81001; 83605; 83735; 84484; 85025; 87040; 87086; 87633; 93005; 94640; 96365; 96366; 96372; 96375; 96376; 99221; 99285; J0696; J1643; J2920; J2930

== ENCOUNTER 2022-11-13 17:16 | Emergency (ER) | payer OTHER, MEDICARE, SELFPAY ==
--- NOTE | ~2022-11-13 | CT_ITS ---
EXAMINATION: CT HEAD WITHOUT CONTRAST CLINICAL INFORMATION: Headache status-post fall. COMPARISON: CT head dated 10/02/2021. TECHNIQUE: Contiguous axial imaging was performed from the skull base to vertex without intravenous administration of contrast. Multiplanar reformatted images are submitted. This CT examination was performed using dose optimization techniques as appropriate, variously including the following: *Automated exposure control *Adjustment of mA and/or kV according to patient size (this includes techniques or standardized protocols for targeted exams where dose is matched to indication/reason for exam; i.e. extremities or head) *Use of iterative reconstruction technique DLP: 948 mGy-cm (head and cervical spine) FINDINGS: There is no acute intracranial hemorrhage or evidence of territorial infarction. No abnormal mass effect or midline shift is seen. Valerio to white matter differentiation is well preserved. There is no abnormal attenuation within the brain parenchyma. The ventricles are normal in size. No extra-axial fluid collections are identified. The calvarium and scalp soft tissues are normal. The middle ear cavity and mastoid air cells are clear. The visualized paranasal sinuses are clear. CT/CT cervical spine wo IV con IMPRESSION: No acute intracranial pathology. EXAMINATION: CT CERVICAL SPINE WITHOUT CONTRAST CLINICAL INFORMATION: Pain status-post fall. COMPARISON: CT cervical spine dated 10/02/2021. TECHNIQUE: Contiguous axial imaging was performed through the cervical spine without intravenous administration of contrast. Multiplanar reformatted images are submitted. This CT examination was performed using dose optimization techniques as appropriate, variously including the following: *Automated exposure control *Adjustment of mA and/or kV according to patient size (this includes techniques or standardized protocols for targeted exams where dose is matched to indication/reason for exam; i.e. extremities or head) *Use of iterative reconstruction technique DLP: As above FINDINGS: Vertebral body heights and alignment are normal. At C3-C4, there is moderate disc space narrowing, with vacuum disc phenomenon. At C4-C5 and C5-C6, there is mild disc space narrowing, with vacuum disc phenomenon. At C6-C7, there is moderate disc space narrowing, with endplate Schmorl's node formation. No acute fracture or spondylolisthesis is seen. There is multi-level mild cervical spondylosis and facet arthropathy. The dens is intact. No prevertebral soft tissue swelling is seen. The bilateral lung apices are clear. IMPRESSION: 1. There is multi-level cervical degenerative disc disease, spondylosis and facet arthropathy. Degenerative disease is most pronounced at C3-C4 and C6-C7, where it is moderate. 2. No acute fracture or spondylolisthesis is seen. Fleischner guidelines were followed.
--- NOTE | ~2022-11-13 | XR_ITS ---
EXAMINATION: XR THORACIC SPINE CLINICAL INFORMATION: Pain status-post fall. COMPARISON: None available. TECHNIQUE: Frontal, lateral and swimmer's views of the thoracic spine were obtained. FINDINGS: Vertebral body heights are normal. At T9-T10, there is mild anterior disc space narrowing. The remaining disc spaces are relatively well-maintained. No acute fracture or spondylolisthesis is seen. There is multi-level thoracic spondylosis. The posterior elements are intact. The paravertebral soft tissues are unremarkable. Humeral orthopedic anchors are noted. XR/XR lumbar spine 2-3V IMPRESSION: 1. No acute fracture or spondylolisthesis is seen. 2. There is mild degenerative disc disease at T9-T10. 3. There is multi-level thoracic spondylosis. EXAMINATION: XR LUMBOSACRAL SPINE CLINICAL INFORMATION: Pain status-post fall. COMPARISON: None available. TECHNIQUE: AP and lateral views of the lumbar spine and lateral view of the lumbosacral junction. FINDINGS: The vertebral bodies and posterior elements are normal. At L4-L5, there is a 5 mm anterolisthesis. The remaining disc spaces are preserved and the vertebral alignment is normal. There is mild anterior spondylosis of the L1 and L5 upper endplates. There is multi-level facet arthropathy, most pronounced at L4-L5 and L5-S1. The paraspinal soft tissues are normal. IMPRESSION: 1. There is mild to moderate degenerative disc disease at L4-L5. 2. There is facet arthropathy at L4-L5 and L5-S1. 3. There is mild anterior spondylosis of the L1 and L5 upper endplates.
--- NOTE | ~2022-11-13 | XR_ITS ---
EXAMINATION: XR THORACIC SPINE CLINICAL INFORMATION: Pain status-post fall. COMPARISON: None available. TECHNIQUE: Frontal, lateral and swimmer's views of the thoracic spine were obtained. FINDINGS: Vertebral body heights are normal. At T9-T10, there is mild anterior disc space narrowing. The remaining disc spaces are relatively well-maintained. No acute fracture or spondylolisthesis is seen. There is multi-level thoracic spondylosis. The posterior elements are intact. The paravertebral soft tissues are unremarkable. Humeral orthopedic anchors are noted. XR/XR thoracic spine 3V IMPRESSION: 1. No acute fracture or spondylolisthesis is seen. 2. There is mild degenerative disc disease at T9-T10. 3. There is multi-level thoracic spondylosis. EXAMINATION: XR LUMBOSACRAL SPINE CLINICAL INFORMATION: Pain status-post fall. COMPARISON: None available. TECHNIQUE: AP and lateral views of the lumbar spine and lateral view of the lumbosacral junction. FINDINGS: The vertebral bodies and posterior elements are normal. At L4-L5, there is a 5 mm anterolisthesis. The remaining disc spaces are preserved and the vertebral alignment is normal. There is mild anterior spondylosis of the L1 and L5 upper endplates. There is multi-level facet arthropathy, most pronounced at L4-L5 and L5-S1. The paraspinal soft tissues are normal. IMPRESSION: 1. There is mild to moderate degenerative disc disease at L4-L5. 2. There is facet arthropathy at L4-L5 and L5-S1. 3. There is mild anterior spondylosis of the L1 and L5 upper endplates.
[2022-11-13 17:26] VITALS: BP 119/71; PULSE 75; RESP 18; TEMP 36.8; O2SAT 99; BMI 32.9
--- NOTE | 2022-11-13 17:27 | ED.FALL ---
HPI - Fall General Chief Complaint: Fall Stated Complaint: Fall 11/13 Head Injury Time Seen by Provider: 11/13/22 21:31 Source: patient Mode of arrival: ambulatory Limitations: no limitations History of Present Illness HPI Narrative: 77 yo female with PMH of bronchitis, asthma, COPD, GERD, not on AC therapy here with c/o fall down 3 stairs after her dog tripped her. she slipped down on her back and did hit back of head no LOC. She has pain in entire back neck and back of head. This happened at 730AM. No other injuries to rib, abdomen, extremities. No vomiting. Took tylenol and motrin without relief. She notes she feels okay at this time but has pain with movement and has to walk tomorrow. complaint: fall Onset (ago): hour(s) (730am today ) Fall from: standing Fall witnessed: no Place fall occurred: home Loss of consciousness: none Prolonged down time: no Symptoms prior to fall: none Context: tripped/slipped Location of injury: head, neck and back Severity: moderate Quality: aching and throbbing Associated symptoms (after fall): headache and neck pain Related Data Home Medications Medication Instructions Recorded Confirmed albuterol sulfate 90 mcg/actuation 2 puff inhalation Q6H PRN 06/09/22 06/09/22 aerosol inhaler (Ventolin HFA) Shortness Of Breath Or Wheezing benzonatate 100 mg capsule 100 mg PO TID PRN Cough 06/09/22 06/09/22 fluticasone 500 mcg-salmeterol 50 1 ea inhalation BID 06/09/22 06/09/22 mcg/dose blistr powdr for inhalation (Joseela Inhub) multivitamin 1 tab PO DAILY 06/09/22 06/09/22 pantoprazole 20 mg tablet,delayed 20 mg PO DAILY@0630 06/09/22 06/09/22 release trazodone 100 mg tablet 100 mg PO BEDTIME 06/09/22 06/09/22 Previous Rx's Medication Instructions Recorded amoxicillin 500 mg-potassium 1 tab PO BID #12 tabs 06/11/22 clavulanate 125 mg tablet (Augmentin) loratadine 10 mg tablet 10 mg PO DAILY #30 tabs 06/11/22 beqygpdeczjfr-YV-zyaaqmodlsh 2.5 15 ml PO Q4H PRN cough #118 mL 06/11/22 mg-5 mg-50 mg/5 mL oral liquid (Robitussin Cough and Cold CF) prednisone 20 mg tablet 40 mg (2 x 20 mg) PO DAILY #8 tabs 06/11/22 lidocaine 5 % topical patch 1 patch topical DAILY #30 ea 11/13/22 ondansetron 4 mg disintegrating 4 mg PO Q8H PRN nausea and 11/13/22 tablet vomiting #20 tabs Allergies Allergy/AdvReac Type Severity Reaction Status Date / Time meperidine [From Demerol] AdvReac Mild NAUSEA & Verified 06/09/22 13:48 VOMITING Review of Systems Review of Systems: Constitutional : No Fever, No Chills, No Fatigue ENT/Mouth : No sore throat, No Rhinorrhea Eyes: No Eye Pain, No Swelling, No Redness Cardiovascular : No Chest Pain, No SOB, No Dyspnea on Exertion Respiratory : No Cough, No Sputum Gastrointestinal : No Nausea, No Vomiting, No Diarrhea, No abdominal Pain Genitourinary : No Dysuria, No Urinary Frequency, No Hematuria, Musculoskeletal : No joint pain, No Myalgias, No Joint Swelling, pos back pain and pos neck pain Skin : No Skin Lesions, No rash Neuro : No Weakness, No Numbness, No Dizziness, positive Headache Psych : No Anxiety/Panic, No Depression Heme/Lymph: No Bruising, No Bleeding,No Lymphadenopathy Endocrine : No Polyuria, No Polydipsia All other systems reviewed and are negative [facility] Past Medical History Attestation statement: The following information was validated with the patient. Medical History Insomnia GERD (gastroesophageal reflux disease) COPD (chronic obstructive pulmonary disease) Asthma Social History Social History Household Members: None Housing: Apartment Do you presently have visiting nurse or other home services: No Alcohol intake: current Alcohol intake frequency: holidays/special occasions only Patient Tobacco Use Status: Never used Tobacco Smoked in Last 30 Days: No Use of substances other than those prescribed or required for medical reasons: No Advance Directives: No Advance Directives Information Provided: No service: No Current occupational status: retired Physical Exam Vital Signs: Vital Signs: Last Vital Signs Temp 98.0 F 11/13/22 21:50 Pulse 69 09/12/23 21:50 Resp 12 11/13/22 21:50 BP 136/70 11/13/22 21:50 Pulse Ox 96 11/13/22 21:50 O2 Del Method Room Air 11/13/22 21:50 BMI result Body Mass Index 32.9 Appearance: Alert. Oriented X3. No acute distress. Eyes: Pupils equal, round and reactive to light. ENT: Pharynx normal. Neck: ttp along R trapezius UE NV intact CVS: Normal heart rate and rhythm. Pulses normal. Respiratory: No respiratory distress. Breath sounds normal. Back: ttp along paraspinals no midline ttp or step offs Abdomen: Soft and nontender. Skin: Skin warm and dry. Normal skin color. Normal skin turgor. Extremities: No lower extremity edema. normal ROM Neuro: Oriented X 3. No motor deficit. No sensory deficit. Course Course Course Narrative: RME: 77yo F w/PMHx Asthma, COPD, c/o ROBERT, back pain and neck pain s/p mechanical trip & fall down flight of stairs this morning landing on back and hitting back of head. States tripped over dog. +Lightheadedness, denies N/V or taking AC Ambulating w/guarding gait, no midline ttp Head/C-spine & XRs ordered Full HPI, ROS and PE to be performed by primary ED provider. Medications Administered Discontinued Medications Generic Name Dose Route Start Last Admin Trade Name Freq PRN Reason Stop Dose Admin Hydrocodone Bitart/Acetaminophen 1 tab 11/13/22 21:44 11/13/22 22:45 Hydrocodone Bit/Acetam 5/325 Tablet PO 11/13/22 21:45 1 tab ONCE ONE Administration Lidocaine 2 patch 11/13/22 21:44 11/13/22 22:44 Lidocaine 4 % Patch Adh..Patch TRANSDERMA 11/13/22 21:45 2 patch ONCE ONE Administration Protocol Ondansetron HCl 4 mg 11/13/22 21:44 11/13/22 22:45 Ondansetron Odt 4 Mg Tab.Rapdis TRANSLINGU 11/13/22 21:45 4 mg ONCE ONE Administration Medical Decision Making Medical Decision Making MDM Narrative: 77 yo female with PMH of bronchitis, asthma, COPD, GERD, not on AC therapy here with mechanical fall down 3 steps able to get up on her own - at this time will need CT head/cspine and xrays of lumbar and thoracic spine no vomiting, GCS 15 - fall was mechanical over a dog. She is able to walk UE and LE NV intact. No rib or abdominal trunk injury. Differential Diagnosis Differential Diagnoses: The differential diagnosis associated with the presentation includes strain, fracture, head injury, neck pain Admission/Observation Consideration of admission/observation: Escalation of care including admission/observation considered able to walk feels better can be managed as outpatient GCS 15 NV intact Independent Interpretation I performed an independent interpretation of an: Plain X-Ray (no fracture) and CT Scan (no ICH) Radiology Impression Discussion of test interpretation with radiology: I have reviewed the radiologist's reading. External Record Review External record reviewed: Inpatient record Prescription Management I considered prescription management with: Pain Medication and Other Discharge Plan Discharge Clinical Impression: Head injury Qualifiers: Encounter type: initial encounter Qualified Code(s): S09.90XA - Unspecified injury of head, initial encounter Acute whiplash injury Qualifiers: Encounter type: initial encounter Qualified Code(s): S13.4XXA - Sprain of ligaments of cervical spine, initial encounter Back strain Qualifiers: Encounter type: initial encounter Qualified Code(s): S39.012A - Strain of muscle, fascia and tendon of lower back, initial encounter Patient Disposition: Home, Self-Care Instructions: Head Injury (ED), Acute Low Back Pain (ED), Acute Neck Pain (ED) Additional Instructions: CT scans show no acute fracture - xrays show no acute fracture but arthritis throughout cervical, thoracic and lumbar spine. return for worsening pain, numbness, weakness, loss of control of bowel or bladder or any other concerns. follow up with your doctor if pain remains more than 4 days. Prescriptions: New lidocaine 5 % adhesive patch,medicated 1 patch topical DAILY Qty: 30 0RF Rx Instructions: leave on most painful area for up to 12 hrs ondansetron 4 mg tablet,disintegrating 4 mg PO Q8H PRN (Reason: nausea and vomiting) Qty: 20 0RF No Action multivitamin Tablet 1 tab PO DAILY pantoprazole 20 mg tablet,delayed release (DR/EC) 20 mg PO DAILY@0630 trazodone 100 mg tablet 100 mg PO BEDTIME benzonatate 100 mg capsule 100 mg PO TID PRN (Reason: Cough) fluticasone propion-salmeterol [Wixela Inhub] 500-50 mcg/dose blister with device 1 ea inhalation BID albuterol sulfate [Ventolin HFA] 90 mcg/actuation HFA aerosol inhaler 2 puff inhalation Q6H PRN (Reason: Shortness Of Breath Or Wheezing) loratadine 10 mg Tablet 10 mg PO DAILY Qty: 30 0RF prednisone 20 mg tablet 40 mg PO DAILY Qty: 8 0RF Robitussin Cough and Cold CF 2.5-5-50 mg/5 mL liquid 15 ml PO Q4H PRN (Reason: cough) Qty: 118 0RF amoxicillin-pot clavulanate [Augmentin] 500-125 mg tablet 1 tab PO BID Qty: 12 0RF Stand Alone Forms: Work/School Release
[2022-11-13 21:40] VITALS: BP 136/70; PULSE 69; RESP 12; TEMP 36.7; O2SAT 96
[2022-11-13 21:50] VITALS: BP 136/70; PULSE 69; RESP 12; TEMP 36.7; O2SAT 96
--- NOTE | 2022-11-13 21:51 | PC.NURSE ---
Pt ca&ox4, no signs of distress. Pt reports 8/10 back, neck, and head pain. Pt reports hitting her head but no Loc. Provider in with pt. plan of care ongoing.
[2022-11-13] MEDS: Lidocaine 4 % Patch ADH..PATCH 2 PATCH TRANSDERMA (22:44)
[2022-11-13] MEDS: Ondansetron ODT 4 MG TAB.RAPDIS TRANSLINGU (22:45)
[2022-11-13] MEDS: HYDROcodone Bit/Acetam 5/325 TABLET 1 TAB PO (22:45)
--- NOTE | 2022-11-13 22:54 | PC.NURSE ---
Pt ca&ox4, no signs of distress. Pt medicated per may. Pt requested and given crackers and water. Plan of care ongoing.
== END 2022-11-14 00:05 | disposition home or self-care (01) ==
PROVIDERS: Emergency Provider Emergency Medicine; PCP Internal Medicine
DX: S09.90XA Unspecified injury of head, initial encounter (principal); S13.4XXA Sprain of ligaments of cervical spine, initial encounter; S39.012A Strain of muscle, fascia and tendon of lower back, initial encounter; W10.8XXA Fall (on) (from) other stairs and steps, initial encounter; Y93.89 Activity, other specified; Y92.038 Other place in apartment as the place of occurrence of the external cause; Y99.9 Unspecified external cause status
CPT/HCPCS: 70450; 72072; 72100; 72125; 99284

== ENCOUNTER 2023-09-28 17:19 | Emergency (ER) | payer OTHER, MEDICARE, SELFPAY ==
--- NOTE | ~2023-09-28 | XR_ITS ---
EXAMINATION: XR KNEE, LEFT CLINICAL INFORMATION: Reason for Exam pain COMPARISON: None TECHNIQUE: 4 views of the knee FINDINGS: No acute fracture or dislocation. Joint spaces are maintained. Quadriceps tendon enthesopathy. Trace suprapatellar joint effusion. Soft tissues are unremarkable. XR/XR knee LT 4V IMPRESSION: 1. No acute osseous abnormality. 2. Quadriceps tendon enthesopathy. 3. Trace suprapatellar joint effusion.
--- NOTE | ~2023-09-28 | US_ITS ---
EXAMINATION: US VENOUS ULTRASOUND WITH DOPPLER LOWER EXTREMITY, LEFT CLINICAL INFORMATION: Left lower extremity pain. COMPARISON: None available. TECHNIQUE: Ultrasound of the deep veins is performed from the hip to the calf with compression sonography and color and pulse Doppler assessment. Spectral analysis with color-flow imaging is performed. FINDINGS: There is normal venous compression and respiratory variation and augmented flow. The visualized common femoral vein, superficial femoral vein, profunda femoral vein, popliteal vein, and the trifurcation region shows no evidence of deep venous thrombosis. There is no significant popliteal fossa cyst. If the patient's symptoms persist, followup ultrasound in 5 days 7 days might be of value to exclude proximal propagation from a non-visualized calf vein. Mild subcutaneous edema is noted along the medial aspect of the knee at the area of concern. US/US venous duplex LE LT IMPRESSION: No DVT demonstrated in the left lower extremity. Mild subcutaneous edema is noted along the medial aspect of the knee at the area of concern.
--- NOTE | ~2023-09-28 | XR_ITS ---
EXAMINATION: XR FOOT, LEFT CLINICAL INFORMATION: Pain COMPARISON: None TECHNIQUE: 3 views of the foot FINDINGS: No fracture or dislocation. Status post fusion of the first metatarsophalangeal joint with plate and screw fixation and osseous fusion across the joint space. Pes planus. 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 No joint effusion. Soft tissues are unremarkable. XR/XR foot LT min 3V IMPRESSION: 1. Status post fusion of the first metatarsophalangeal joint with plate and screw fixation and osseous fusion across the joint space. 2. Pes planus. 3. 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
--- NOTE | 2023-09-28 17:38 | ED.LOWEXIN ---
HPI - Extremity Injury (Lower) General Chief Complaint: Extremity Injury, Lower Stated Complaint: left ft pain Time Seen by Provider: 09/28/23 18:31 Source: patient, RN notes reviewed and old records reviewed Mode of arrival: ambulatory Limitations: no limitations History of Present Illness ED Provider: Nunu HPI Narrative: 78-year-old female presents for evaluation of left foot pain. She also complains of pain to her left knee and posterior knee. She states the pain had been present for about 2 months. She denies any falls or traumatic injuries. Her pain is worse with sitting down for long periods as well as standing but not while lying down Denies any redness, swelling pain Denies any history of DVT or PE. At worst her pain is stabbing, 10/11 Related Data Home Medications ?Medication ?Instructions ?Recorded ?Confirmed albuterol sulfate 90 mcg/actuation 2 puff inhalation Q6H PRN 06/09/22 06/09/22 aerosol inhaler (Ventolin HFA) Shortness Of Breath Or Wheezing benzonatate 100 mg capsule 100 mg PO TID PRN Cough 06/09/22 06/09/22 fluticasone 500 mcg-salmeterol 50 1 ea inhalation BID 06/09/22 06/09/22 mcg/dose blistr powdr for inhalation (Wixela Inhub) multivitamin 1 tab PO DAILY 06/09/22 06/09/22 pantoprazole 20 mg tablet,delayed 20 mg PO DAILY@0630 06/09/22 06/09/22 release trazodone 100 mg tablet 100 mg PO BEDTIME 06/09/22 06/09/22 Previous Rx's ?Medication ?Instructions ?Recorded amoxicillin 500 mg-potassium 1 tab PO BID #12 tabs 06/11/22 clavulanate 125 mg tablet (Augmentin) loratadine 10 mg tablet 10 mg PO DAILY #30 tabs 06/11/22 whbmwxcfqwqje-DN-rddzyhxwqrr 2.5 15 ml PO Q4H PRN cough #118 mL 06/11/22 mg-5 mg-50 mg/5 mL oral liquid (Robitussin Cough and Cold CF) prednisone 20 mg tablet 40 mg (2 x 20 mg) PO DAILY #8 tabs 06/11/22 lidocaine 5 % topical patch 1 patch topical DAILY #30 ea 11/13/22 ondansetron 4 mg disintegrating 4 mg PO Q8H PRN nausea and 11/13/22 tablet vomiting #20 tabs tramadol 50 mg tablet 50 mg PO Q8H PRN severe pain 09/28/23 (scale score 7-10) #15 tabs Allergies Allergy/AdvReac Type Severity Reaction Status Date / Time meperidine [From Demerol] AdvReac Mild NAUSEA & Verified 09/28/23 17:41 VOMITING Review of Systems Constitutional: Constitutional: Denies body ache(s), Denies chills and Denies headache(s) ENT: Denies headache(s) Cardiovascular: Cardiovascular: Denies chest pain and Denies dyspnea Respiratory: Respiratory: Denies dyspnea Musculoskeletal: Musculoskeletal: Reports arthralgias, Denies joint swelling, Reports limited range of motion and Reports radiating pain into limb Integumentary/Breasts: Skin/Breast: Denies rash Neurologic: Denies headache(s) [facility] Past Medical History Medical History Insomnia GERD (gastroesophageal reflux disease) COPD (chronic obstructive pulmonary disease) Asthma Social History Social History Household Members: None Housing: Apartment Do you presently have visiting nurse or other home services: No Alcohol intake: current Alcohol intake frequency: holidays/special occasions only Patient Tobacco Use Status: Never used Tobacco Smoked in Last 30 Days: No Use of substances other than those prescribed or required for medical reasons: No Advance Directives: No Advance Directives Information Provided: No service: No Current occupational status: retired Physical Exam Vital Signs: Vital Signs: Last Vital Signs Temp 98 F 09/28/23 19:41 Pulse 81 09/28/23 19:41 Resp 16 09/28/23 19:41 BP 139/64 09/28/23 19:41 Pulse Ox 95 09/28/23 19:41 O2 Del Method Room Air 09/28/23 19:41 BMI result Body Mass Index 35.3 Const: General: healthy appearing, comfortable, no acute distress, alert and awake Nutritional Appearance: well nourished Orientation/consciousness: patient oriented x3 HEENT: Head: Yes normocephalic and Yes atraumatic Throat: Yes posterior oropharynx normal Eyes: Eyelids: Yes eyelids normal Conjunctivae: conjunctivae normal Sclerae: sclerae normal Corneas: corneas normal Pupils: Equal, round and reactive pupils present EOM: EOMs intact bilaterally Neck: Neck: Yes full ROM Resp: Effort & Inspection: normal respiratory effort, able to speak in complete sentences and not labored Skin: General skin exam: elasticity normal Neuro: General: patient oriented x3 Cranial nerves: Yes Equal, round and reactive pupils present and Yes Bilaterally intact EOM present Cognition (Neuro): normal cognition Extrem: Other: No visual or palpable deformity to the left foot. No overlying skin changes. The patient is tender to both the dorsal surface of the left foot and the plantar surface left foot. There is tenderness to the left medial knee without deformity noted. The patient has full range of motion with flexion-extension. No calf tenderness. No left lower extremity edema Course Course Course Narrative: This is a Rapid Medical Exam performed in triage by Kisha Barnes PA-C. Full HPI, ROS and PE to be performed by primary ED provider. 78 year-old F w/ PMHx asthma, COPD presenting to the ED c/o atraumatic L foot pain radiating proximally to knee x2 mos. denies injury. pain worse w/ambulating, standing. PE: in wheelchair, + reproducible left and calf tenderness. Neurovascularly intact. No discoloration Plan: XR, ultrasound Medical Decision Making Medical Decision Making MDM Narrative: 78-year-old female presents for evaluation of left foot and leg pain going back to 2 months. X-rays ordered left knee, left foot and ultrasound of left lower extremity to rule out DVT. There are no findings to suggest infectious cause. She is not diabetic so neuropathy is less likely Differential Diagnosis Differential Diagnoses: The differential diagnosis associated with the presentation includes Left foot pain Left leg pain DVT Plantar fasciitis Arthritis Independent Interpretation I performed an independent interpretation of an: Plain X-Ray (No significant left knee joint effusion, no significant arthritis) Interpretation: Sequelae of left 1st metatarsal surgery. No obvious fractures Radiology Impression Discussion of test interpretation with radiology: I have reviewed the radiologist's reading. Radiologist Impression: XR/XR knee LT 4V IMPRESSION: 1. No acute osseous abnormality. 2. Quadriceps tendon enthesopathy. 3. Trace suprapatellar joint effusion. XR/XR foot LT min 3V IMPRESSION: 1. Status post fusion of the first metatarsophalangeal joint with plate and screw fixation and osseous fusion across the joint space. 2. Pes planus. 3. 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 Discharge Plan Discharge Clinical Impression: Acute pain of left foot Patient Disposition: Home, Self-Care Instructions: Arthralgia (ED) Additional Instructions: Your ultrasound shows no evidence of blood clot/DVT. Your x-ray shows your previous surgical hardware, arthritis and ?flat foot. ? I recommend that you try to follow-up with a plant health care technician as an outpatient. You may benefit from insoles in your shoe to help support the foot Continue to use Tylenol for pain You may use tramadol for more severe breakthrough pain. This may make you sleepy, did not drink alcohol or drive after taking it Prescriptions: New tramadol 50 mg tablet 50 mg PO Q8H PRN (Reason: severe pain (scale score 7-10)) Qty: 15 0RF No Action multivitamin Tablet 1 tab PO DAILY pantoprazole 20 mg tablet,delayed release (DR/EC) 20 mg PO DAILY@0630 trazodone 100 mg tablet 100 mg PO BEDTIME benzonatate 100 mg capsule 100 mg PO TID PRN (Reason: Cough) fluticasone propion-salmeterol [Wixela Inhub] 500-50 mcg/dose blister with device 1 ea inhalation BID albuterol sulfate [Ventolin HFA] 90 mcg/actuation HFA aerosol inhaler 2 puff inhalation Q6H PRN (Reason: Shortness Of Breath Or Wheezing) loratadine 10 mg Tablet 10 mg PO DAILY Qty: 30 0RF prednisone 20 mg tablet 40 mg PO DAILY Qty: 8 0RF Robitussin Cough and Cold CF 2.5-5-50 mg/5 mL liquid 15 ml PO Q4H PRN (Reason: cough) Qty: 118 0RF amoxicillin-pot clavulanate [Augmentin] 500-125 mg tablet 1 tab PO BID Qty: 12 0RF lidocaine 5 % adhesive patch,medicated 1 patch topical DAILY Qty: 30 0RF Rx Instructions: leave on most painful area for up to 12 hrs ondansetron 4 mg tablet,disintegrating 4 mg PO Q8H PRN (Reason: nausea and vomiting) Qty: 20 0RF Interventions: ED Discharge Assessment Last Done: 09/28/23 19:41 Discharge Date/Time: 09/28/23 19:42 Print Language: American
[2023-09-28 17:39] VITALS: BP 132/73; PULSE 84; RESP 18; TEMP 36.5; O2SAT 98; BMI 35.3
[2023-09-28 18:32] VITALS: BP 139/64; PULSE 81; RESP 16; TEMP 36.6; O2SAT 95
--- NOTE | 2023-09-28 18:36 | PC.NURSE ---
Pt comes to ED for c/o 9/10 pain to L foot radiating up to ankle and knee. Pain has been occurring x2 months with no known origin. Pt denies fall or injury. 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 Xray and U/S results pending.
[2023-09-28 19:41] VITALS: BP 139/64; PULSE 81; RESP 16; TEMP 36.6; O2SAT 95
== END 2023-09-28 19:42 | disposition home or self-care (01) ==
PROVIDERS: Emergency Provider Emergency Medicine; PCP Internal Medicine
DX: M79.672 Pain in left foot (principal); M21.42 Flat foot [pes planus] (acquired), left foot; M19.072 Primary osteoarthritis, left ankle and foot; M25.562 Pain in left knee; J45.909 Unspecified asthma, uncomplicated; Z79.899 Other long term (current) drug therapy
CPT/HCPCS: 73564; 73630; 93971; 99284

== ENCOUNTER 2024-08-31 14:09 | Emergency (ER) | payer MEDICARE, OTHER, SELFPAY ==
--- NOTE | ~2024-08-31 | XR_ITS ---
EXAMINATION: XR CHEST 2 VIEWS HISTORY: chest pain COMPARISON: Comparison is made with the prior examination dated 06/09/2022. FINDINGS: PA and lateral views of the chest are submitted. There is linear scarring at the left lung base. Subsegmental atelectasis versus scarring is noted in the right midlung zone. There is no pleural effusion, pneumothorax, or pulmonary vascular congestion. The heart is enlarged. There is degenerative disc disease of the spine. There are suture anchors in the left humeral head. XR/XR chest 2V IMPRESSION: Cardiomegaly. Subsegmental atelectasis versus scarring in the right midlung zone. Left basilar scarring. Electronically signed by: Jerome Briggs MD 08/31/2024 03:03 PM EDT
--- NOTE | 2024-08-31 14:11 | ECG_ITS ---
Test Reason : CHEST PAIN Blood Pressure : */* mmHG Vent. Rate : 79 BPM Atrial Rate : 79 BPM P-R Int : 138 ms QRS Dur : 84 ms QT Int : 396 ms P-R-T Axes : 8 -32 -3 degrees QTcB Int : 454 ms Normal sinus rhythm Left axis deviation Abnormal ECG When compared with ECG of 09-Jun-2022 13:59, No significant change was found Referred By: Autumn Pate Electronically Signed By: LAYNE BLAIR MD
[2024-08-31 14:39] VITALS: BP 169/82; PULSE 80; RESP 16; TEMP 36.4; O2SAT 95; BMI 35.1
--- NOTE | 2024-08-31 14:41 | ED_ITS ---
HPI - General Adult General Chief complaint: Chest Pain Stated complaint: chest pain Time Seen by Provider: 08/31/24 19:49 Source: patient Mode of arrival: ambulatory Limitations: no limitations History of Present Illness ED Provider: HPI narrative: Patient is 78 years old with history of asthma no known coronary artery disease been having mid chest pain off and on all day today radiating to the back sharp in nature gets worse on deep inspiration and palpation no history of similar pain in the past patient has what triage earlier and had blood workup done x2 negative cardiac enzymes no acute ischemic changes in the EKG Related Data Home Medications ?Medication ?Instructions ?Recorded ?Confirmed albuterol sulfate 90 mcg/actuation 2 puff inhalation Q 6H PRN 06/09/22 06/09/22 aerosol inhaler (Ventolin HFA) Shortness Of Breath Or Wheezing benzonatate 100 mg capsule 100 mg PO TID PRN Cough 10/2406/09/22 fluticasone 500 mcg-salmeterol 50 1 ea inhalation BID 06/09/22 06/09/22 mcg/dose blistr powdr for inhalation (Wixela Inhub) multivitamin 1 tab PO DAILY 06/09/22 04/10/24 pantoprazole 20 mg tablet,delayed 20 mg PO DAILY@0630 06/09/22 06/09/22 release trazodone 100 mg tablet 100 mg PO BEDTIME 06/09/22 0 06/09/22 Previous Rx's ?Medication ?Instructions ?Recorded amoxicillin 500 mg-potassium 1 tab PO BID #12 tabs 12/24 clavulanate 125 mg tablet (Augmentin) loratadine 10 mg tablet 10 mg PO DAILY #30 tabs 06/02 [id number]-[id number] 2.5 15 ml PO Q4H PRN coug h #118 mL 06/11/22 mg-5 mg-50 mg/5 mL oral liquid (Robitussin Cough and Cold CF) prednisone 20 mg tablet 40 mg (2 x 20 mg) PO DAILY # 8 tabs 06/11/22 lidocaine 5 % topical patch 1 patch topical DAILY #30 ea 11/13/22 ondansetron 4 mg disintegrating 4 mg PO Q8H PRN nausea and 11/13/22 tablet vomiting #20 tabs tramadol 50 mg tablet 50 mg PO Q8H PRN severe pain 09/28/23 (scale score 7-10) #15 tabs Allergies Allergy/AdvReac Type Severity Reaction Status Date / Time meperidine (From Demerol) AdvReac Mild NAUSEA & Verified 08/31/24 14:39 VOMITING Review of Systems 2 Review of Systems: Yes all other systems are reviewed and are negative [facility] Past Medical History Medical History Insomnia GERD (gastroesophageal reflux disease) COPD (chronic obstructive pulmonary disease) Asthma Social History Social History Household Members: None Housing: Apartment Do you presently have visiting nurse or other home services: No Alcohol intake: current Alcohol intake frequency: holidays/special occasions only Patient Tobacco Use Status: Never used Tobacco Advance Directives: No Advance Directives Information Provided: No Do you have a plan to hurt others: No Plan service: No Current occupational status: retired Physical Exam ED Vital Signs: Vital Signs - 24 hr 08/31/24 14:39 08/31/24 19:43 Temperature 97.6 F 97.8 F Pulse Rate 80 69 Respiratory Rate 16 20 Blood Pressure 169/82 H 132/77 Pulse Oximetry 95 97 Oxygen Delivery Method Room Air Room Air BMI result Body Mass Index 35.1 Appearance: Alert. Oriented X3. No acute distress. Eyes: PERRLA, No Nystagmus ENT: Pharynx normal. Oral Mucosa moist Neck: Normal inspection. Neck supple. CVS: Normal heart rate and rhythm. Pulses normal. Respiratory: No respiratory distress. Equal air entry bilateral, no wheezing/rales/rhonchi reproducible left-sided chest pain Abdomen: Soft and nontender. Bowel sounds are present, no mass palpable, no CVA tenderness Skin: Skin warm and dry. Normal skin color. Normal skin turgor. Extremities: No lower extremity edema. No calf tenderness Neuro: Oriented X 3. No motor deficit. No sensory deficit. Course Course Course Narrative: RME performed by Autumn Pate PA-C. Patient is a 78 year old assigned female at presenting to the emergency department with left sided chest pain and nausea. Detailed physical exam and review of systems are deferred to the program director air talent. EKG, labs, imaging, and swabs ordered. Patient placed back in the waiting room pending room availability and results. Medical Decision Making Medical Decision Making [facility] Narrative: Patient with chest pain etiology not very clear does have history of asthma S x-ray-2 sets of cardiac enzymes negative is still patient's feels pain in the chest and upper back patient has refused to stay in the hospital for further workup and to wait for the lab Differential Diagnosis Differential Diagnoses: The differential diagnosis associated with the presentation includes Acute PE/chest wall pain/atypical chest pain/angina Lab Data [facility] Lab Attestation statement: I reviewed the patient's lab results. 08/31/24 15:34 08/31/24 15:34 Labs: Lab Results 08/31/24 08/31/24 Range/Units 15:34 19:11 WBC 7.4 (4.8-10.8) X10*3/uL RBC 4.28 (4.20-5.50) X10*6/uL Hgb 12.1 (12.0-16.0) g/dl Hct 36.6 L (37.0-47.0) % MCV 85.5 (80.0-98.0) fL MCH 28.3 (27.0-33.0) pg MCHC 33.1 (31.0-35.0) g/dl RDW 13.7 (11.0-16.0) % Plt Count 280 (160-400) X10*3/uL MPV 8.8 L (9.4-12.3) fL Immature Gran % (Auto) 0.3 (0.0-0.4) % Neut % (Auto) 66.0 (45-73) % Lymph % (Auto) 24.4 (20-40) % [place] % (Auto) 6.6 (2-11) % Eos % (Auto) 2.0 (0-4) % Baso % (Auto) 0.7 (0-2) % Lymph # (Auto) 1.8 (1.2-4.9) X10*3/uL [place] # (Auto) 0.5 (0.1-1.2) X10*3/uL Eos # (Auto) 0.2 (0.0-0.4) X10*3/uL Baso # (Auto) 0.1 (0.0-0.2) X10*3/uL Abs Immat Gran (auto) 0.02 (0.00-0.03) X10*3/uL Absolute Neuts (auto) 4.9 (2.0-8.3) x10*3/uL Absolute Nucleated RBC 0.000 (0.0-0.012) X10*3/uL Nucleated RBC % (auto) 0.0 (0.0-0.2) /100WBC Sodium 138 (135-145) mmol/L Potassium 4.0 (3.3-5.1) mmol/L Chloride 106 (96-108) mmol/L Carbon Dioxide 24 (22-29) mmol/L Anion Gap 12 (12-20) BUN 18 H (9-16) mg/dL Creatinine 0.71 (0.5-1.4) mg/dL Estim Creat Clear Calc 70.6 Estimated GFR > 60 Random Glucose 95 (60-115) mg/dL Calcium 9.4 (8.4-10.2) mg/dL Magnesium 2.2 (1.6-2.6) mg/dL Total Bilirubin 0.3 (0.0-1.0) mg/dL AST 21 (5-31) U/L ALT 17 (0-31) U/L Alkaline Phosphatase 97 (39-117) U/L Troponin I High Sens < 2.7 < 2.7 (<3.5-17.0) ng/L B-Natriuretic Peptide < 10 (<100) pg/mL Total Protein 7.3 (6.5-8.0) g/dL Albumin 4.3 (3.5-5.0) g/dL Influenza Type A (PCR) NEGATIVE (Negative) Influenza Type B (PCR) NEGATIVE (Negative) RSV RNA Qual (PCR) NEGATIVE (Negative) SARS-CoV-2 RNA (RT-PCR) NEGATIVE (Negative) Independent Interpretation I performed an independent interpretation of an: EKG Interpretation: Normal sinus rhythm ventricular rate 79 beats per minute left axis deviation no acute STT wave changes no ischemia Discharge Plan Discharge Clinical Impression: Chest pain Patient Disposition: Left Against Medical Advice Instructions: Chest Pain (ED) Additional Instructions: Cause of your chest pain is not clear, it needs further evaluation and treatment You have decided to go against medical advice pending workup Please seak medical attention as soon as possible for further management Prescriptions: No Action multivitamin Tablet 1 tab PO DAILY pantoprazole 20 mg tablet,delayed release (DR/EC) 20 mg PO DAILY@0630 trazodone 100 mg tablet 100 mg PO BEDTIME benzonatate 100 mg capsule 100 mg PO TID PRN (Reason: Cough) fluticasone propion-salmeterol [Wixela Inhub] 500-50 mcg/dose blister with device 1 ea inhalation BID albuterol sulfate [Ventolin HFA] 90 mcg/actuation HFA aerosol inhaler 2 puff inhalation Q6H PRN (Reason: Shortness Of Breath Or Wheezing) loratadine 10 mg Tablet 10 mg PO DAILY Qty: 30 0RF prednisone 20 mg tablet 40 mg PO DAILY Qty: 8 0RF Robitussin Cough and Cold CF 2.5-5-50 mg/5 mL liquid 15 ml PO Q4H PRN (Reason: cough) Qty: 118 0RF amoxicillin-pot clavulanate [Augmentin] 500-125 mg tablet 1 tab PO BID Qty: 12 0RF lidocaine 5 % adhesive patch,medicated 1 patch topical DAILY Qty: 30 0RF Rx Instructions: leave on most painful area for up to 12 hrs ondansetron 4 mg tablet,disintegrating 4 mg PO Q8H PRN (Reason: nausea and vomiting) Qty: 20 0RF tramadol 50 mg tablet 50 mg PO Q8H PRN (Reason: severe pain (scale score 7-10)) Qty: 15 0RF Stand Alone Forms: Against Medical Advice Print Language: Niuean
[2024-08-31 15:44] LABS: MANUAL DIFF FLAG NO
[2024-08-31 15:49] LABS: Basophils Absolute Auto 0.1 X10*3/uL (0.0-0.2); Basophils Percent Auto 0.7 % (0-2); Eosinophils Absolute Auto 0.2 X10*3/uL (0.0-0.4); Hematocrit 36.6 % (37.0-47.0); Hemoglobin 12.1 g/dl (12.0-16.0); Imm Gran Abs Auto 0.02 X10*3/uL (0.00-0.03); Imm Gran Pct Auto 0.3 % (0.0-0.4); Lymphocytes Absolute Auto 1.8 X10*3/uL (1.2-4.9); Lymphocytes Percent Auto 24.4 % (20-40); Mean Corpuscular HGB Conc 33.1 g/dl (31.0-35.0); Mean Corpuscular Hemoglobin 28.3 pg (27.0-33.0); Mean Corpuscular Volume 85.5 fL (80.0-98.0); Mean Platelet Volume 8.8 fL (9.4-12.3); Monocytes Absolute Auto 0.5 X10*3/uL (0.1-1.2); Monocytes Percent Auto 6.6 % (2-11); Neutrophils Absolute Auto 4.9 x10*3/uL (2.0-8.3); Platelet Count 280 X10*3/uL (160-400); Red Blood Count 4.28 X10*6/uL (4.20-5.50); Red Cell Distribution Width 13.7 % (11.0-16.0); White Blood Count 7.4 X10*3/uL (4.8-10.8)
[2024-08-31 16:04] LABS: Alanine Aminotransferase 17 U/L (0-31); Albumin Level 4.3 g/dL (3.5-5.0); Alkaline Phosphatase 97 U/L (39-117); Anion Gap 12 (12-20); Aspartate Amino Transferase 21 U/L (5-31); Bilirubin Total 0.3 mg/dL (0.0-1.0); Blood Urea Nitrogen 18 mg/dL (9-16); Calcium 9.4 mg/dL (8.4-10.2); Carbon Dioxide 24 mmol/L (22-29); Chloride 106 mmol/L (96-108); Creatinine Clr Calc Pharmacy 70.6; Estimated Glomerular Filt Rate > 60; Glucose Random 95 mg/dL (60-115); Magnesium 2.2 mg/dL (1.6-2.6); Sodium 138 mmol/L (135-145); Total Protein 7.3 g/dL (6.5-8.0)
[2024-08-31 16:10] LABS: B Type Natriuretic Peptide < 10 pg/mL (<100)
[2024-08-31 16:14] LABS: Troponin-I High Sensitivity < 2.7 ng/L (<3.5-17.0)
[2024-08-31 16:23] LABS: Influenza A PCR NEGATIVE (Negative); Influenza B PCR NEGATIVE (Negative); Resp Syncy Virus RNA Qual PCR NEGATIVE (Negative); SARS COV2 PCR INHOUSE NEGATIVE (Negative)
[2024-08-31 19:43] VITALS: BP 132/77; PULSE 69; RESP 20; TEMP 36.6; O2SAT 97
[2024-08-31 19:45] LABS: Troponin-I High Sensitivity < 2.7 ng/L (<3.5-17.0)
--- OUTSIDE RECORDS SUMMARY | 2024-08-31 19:49 | XMS_ITS | Patient Health Record ---
Author Organization [facility] Address [address] [place] [id number] Care Team Providers Care District Superintendent Name Role Phone Jerome Chau Unavailable [phone] Reason For Referral No Information Plan Of Treatment No Information
[2024-08-31 20:28] VITALS: BP 134/77; PULSE 76; RESP 20; TEMP 36.6; O2SAT 97
[2024-08-31 20:31] LABS: Prothrombin Time 13.3 SEC (10.9-12.4)
[2024-08-31 20:32] LABS: INTERNATIONAL NORM RATIO 1.2 (0.9-1.1)
[2024-08-31 20:34] LABS: D Dimer High Sensitivity 191 NG/ML; Partial Thromboplastin Time 34.6 SEC (26.0-36.8)
--- NOTE | 2024-08-31 20:34 | PC.NURSE ---
pt concerned about her dog, did not want to stay, left against medical advice, provider into discuss risk vs benefit. pt still went home, no sign of distress and had a steady gait.
[2024-08-31 20:35] VITALS: BP 134/77; PULSE 76; RESP 20; TEMP 36.6; O2SAT 97
== END 2024-08-31 20:36 | disposition left against medical advice (07) ==
PROVIDERS: Physician Assistant Medical; Emergency Provider Internal Medicine; PCP Internal Medicine
DX: R07.89 Other chest pain (principal); Z53.29 Procedure and treatment not carried out because of patient's decision for other reasons
CPT/HCPCS: 36415; 71046; 80053; 83735; 83880; 84484; 85025; 85379; 85610; 85730; 87637; 93005; 99283; 99285

== ENCOUNTER → 2024-08-31 14:11 | Outpatient (BNV) | payer OTHER, MEDICARE, SELFPAY | PROVIDERS: PCP Internal Medicine; Visit Provider Internal Medicine Cardiovascular Disease | DX: R94.31 Abnormal electrocardiogram [ECG] [EKG] (principal); R07.9 Chest pain, unspecified | CPT/HCPCS: 93010 ==

== ENCOUNTER → 2024-08-31 14:41 | Outpatient (BNV) | payer OTHER, MEDICARE, SELFPAY | PROVIDERS: PCP Internal Medicine; Visit Provider Radiology Diagnostic Radiology | DX: I51.7 Cardiomegaly (principal) | CPT/HCPCS: 71046 ==